=== PATIENT | female | born 1990 | race Caucasian/White ===

== ENCOUNTER → 2017-03-31 | Outpatient (CLI) | payer OTHER ==
[~2017-03-31] MED LIST: ACHYD1T PO; DCS100C PO; DOCU100C37 PO; IBP800T PO; IBUP-1780 PO; LVT.15T PO; METF500T4 PO; NITR-65 PO; PREN1TAB14 PO
--- NOTE | 2017-03-31 17:37 | Diagnostic Imaging Report ---
CLINICAL INDICATION: Patient with abdominal pain. Patient with retained products from tampon. Doctor removed tampon. EXAM: Transabdominal and transvaginal pelvic ultrasound. COMPARISON: CT scan of the abdomen and pelvis performed with contrast dated 07/25/2016. FINDINGS: IUD appears appropriately placed within the endometrial cavity. The uterus otherwise has normal configuration and echogenicity with no significant abnormality. The uterus measures 8.5 cm x 5.7 cm x 4.4 cm. The endometrial stripe is 6 mm. There is a 2.3 cm x 2.5 cm x 3.2 cm exophytic-appearing cyst involving the inferior portion of the left ovary. A paraovarian cyst may also be considered. This cystic structure has a simple appearance with no septations, nodularity, or Doppler flow. The right and left ovaries show normal-appearing spectral Doppler waveform. There is minimal free fluid seen. IMPRESSION: 1: There is a 3.2 cm cyst within the right adnexal region which may be within the ovary or paraovarian. The patient is noted to have right adnexal cystic structures on the comparison CT scan as well with the largest measuring 3.0 cm on the right. It is unknown if this represents the same cyst. Followup pelvic ultrasound in 6 weeks is suggested to evaluate for stability. 2: Otherwise, remainder of the pelvic exam is unremarkable. 3: IUD is in place. Dictated by: Dictated on workstation # [id number]
== END ==
LOC: RAD 11:44
PROVIDERS: ATTEND Nurse Practitioner Family
DX: R10.2 Pelvic and perineal pain (principal); N83.201 Unspecified ovarian cyst, right side; Z97.5 Presence of (intrauterine) contraceptive device
CPT/HCPCS: 76830; 76856

== ENCOUNTER → 2017-06-05 | Outpatient (CLI) | payer OTHER ==
--- NOTE | 2017-06-05 12:02 | Diagnostic Imaging Report ---
EXAMINATION: Transabdominal and transvaginal pelvic ultrasound. INDICATION: Spotting. FINDINGS: The uterus is 8.3 x 5.7 x 4.8 cm. The endometrial stripe is 0.7 cm in thickness. There is an IUD in place which appears to be in good position. No focal myometrial lesion is identified. The right ovary is 2.2 x 3.1 x 2.2 cm. A 3.2 cm cyst in the right ovary is seen with a simple appearance, similar to the 03/31/2017 exam. The left ovary is 2.9 x 2.6 x 1.8 cm in size. Arterial and venous waveforms are seen in both ovaries. A minimal amount of free fluid is seen in the pelvis. IMPRESSION: Persistent simple appearing 3.2 cm cyst in the right ovary. Dictated by: Dictated on workstation # [id number]
== END ==
LOC: RAD 10:59
PROVIDERS: ATTEND Nurse Practitioner Family
DX: N83.201 Unspecified ovarian cyst, right side (principal)
CPT/HCPCS: 76830; 76856

== ENCOUNTER 2017-10-27 05:32 | Outpatient (CLI) | payer BC ==
[~2017-10-27] VITALS: Ht 170.2 cm; Wt 121.6 kg
[2017-10-27] MEDS ORDERED: DULO20CA18 PO (13:42)
[2017-10-27] MEDS ORDERED: LEVO200T6 PO (13:42)
[2017-10-27] MEDS ORDERED: METF500T4 PO (13:42)
[2017-10-27] MEDS ORDERED: NORG1TAB14 PO (13:51)
[2017-10-27] MEDS ORDERED: ESZO2TAB4 PO (13:51)
== END 2017-10-27 13:52 ==
LOC: PREOP 05:32
PROVIDERS: ATTEND Obstetrics & Gynecology
DX: Z01.818 Encounter for other preprocedural examination (principal); N92.0 Excessive and frequent menstruation with regular cycle; D06.9 Carcinoma in situ of cervix, unspecified; D64.9 Anemia, unspecified

== ENCOUNTER 2019-03-04 12:03 | Emergency (ER) | payer SELFPAY ==
[~2019-03-04] VITALS: Ht 167.6 cm; Wt 122.5 kg
[~2019-03-04 12:03] MED LIST changes: +DULO20CA18 PO; +ESZO2TAB4 PO; +LEVO200T6 PO; +METF-397 PO; -METF500T4 PO; +NORG1TAB14 PO; +OXYC-465 PO
[2019-03-04 12:26] LABS: BASOPHILS # (AUTO) 0.1 10^3/uL (0.0-0.1); BASOPHILS % (AUTO) 1 % (0-10); EOSINOPHILS # (AUTO) 0.3 10^3/uL (0.0-0.3); EOSINOPHILS % (AUTO) 3 % (0-10); HEMATOCRIT 43 % (35-52); LYMPHOCYTES % (AUTO) 32 % (12-44); MEAN CORPUSCULAR HEMOGLOBIN 31 PG (25-34); MEAN CORPUSCULAR HGB CONC 35 G/DL (32-36); MEAN CORPUSCULAR VOLUME 88 FL (80-99); MEAN PLATELET VOLUME 10.6 FL (7.4-10.4); MONOCYTES # (AUTO) 0.6 X 10^3 (0.0-1.0); MONOCYTES % (AUTO) 7 % (0-12); NEUTROPHILS # (AUTO) 5.6 X 10^3 (1.8-7.8); NEUTROPHILS % (AUTO) 59 % (42-75); PLATELET COUNT 248 10^3/uL (130-400); RED CELL DISTRIBUTION WIDTH 12.3 % (10.0-14.5); WHITE BLOOD COUNT 9.5 10^3/uL (4.3-11.0)
[2019-03-04 12:27] LABS: BILIRUBIN,URINE NEGATIVE (NEGATIVE); CLARITY,URINE CLEAR; COLOR,URINE YELLOW; GLUCOSE, URINE (UA) NEGATIVE (NEGATIVE); KETONES,URINE NEGATIVE (NEGATIVE); LEUKOCYTE ESTERASE ,URINE 2+ (NEGATIVE); NITRITE,URINE NEGATIVE (NEGATIVE); PH,URINE 5 (5-9); PROTEIN,URINE NEGATIVE (NEGATIVE); UROBILINOGEN,URINE NORMAL (NORMAL)
--- NOTE | 2019-03-04 12:27 | ED General ---
General Stated Complaint: LIGHTHEADED,DIZZY Source of Information: Patient Exam Limitations: No Limitations History of Present Illness Date Seen by Provider: Mar 04, 2019 Time Seen by Provider: 12:23 Initial Comments To ER by private vehicle with reports of dizziness lightheadedness general malaise. Symptoms of been present for one week, was seen at walk-in clinic over the weekend, diagnosed with tonsillitis, had negative strep test so is not on any antibiotics. Also had a hemoglobin A1c done which was 6.8. She was formerly on metformin but hasn't been recently. 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 States she tried to go to work today but had to leave because she was dizzy she vomited. No palpitations or shortness of breath. Timing/Duration: 1-2 Days Severity: Moderate Associated Systoms: Nausea/Vomiting Allergies and Home Medications Allergies Coded Allergies: No Known Drug Allergies (Unverified , 12/29/12) Home Medications Docusate Sodium 100 Mg Capsule, 100 MG PO BID Prescribed by: RITA VIZCARRA on 11/04/17 1026 Duloxetine HCl 20 Mg Capsule.dr, 40 MG PO DAILY, (Reported) TAKE 2 (20MG) TABS Eszopiclone 2 Mg Tablet, 2 MG PO HS, (Reported) Ibuprofen 800 Mg Tablet, 800 MG PO Q6HR Prescribed by: RITA VIZCARRA on 11/04/17 1026 Levothyroxine Sodium 200 Mcg Tablet, 200 MCG PO DAILY, (Reported) Metformin HCl 500 Mg Tablet, 500 MG PO BID, (Reported) Norgestimate-Ethinyl Estradiol 1 Each Tablet, 1 TAB PO DAILY, (Reported) Oxycodone HCl/Acetaminophen 1 Each Tablet, 1-2 TAB PO Q4HR PRN for PAIN-MODERATE TO SEVERE Prescribed by: RITA VIZCARRA on 11/04/17 1026 Patient Home Medication List Home Medication List Reviewed: Yes Review of Systems Review of Systems Constitutional: see HPI; No chills, No fever; malaise EENTM: see HPI Respiratory: no symptoms reported Cardiovascular: no symptoms reported Gastrointestinal: nausea; No vomiting Genitourinary: no symptoms reported; No dysuria Musculoskeletal: no symptoms reported Skin: no symptoms reported Psychiatric/Neurological: See HPI, Other (dizziness, feels like the room is spinning) Past Mzteqdl-Mwknyc-Fzmqbi Hx Patient Social History Recent Foreign Travel: No Contact w/Someone Who Travel: No Recent Hopitalizations: No Immunizations Up To Date Tetanus Booster (TDap): Unknown PED Vaccines UTD: No Date of Influenza Vaccine: Jun 17, 2017 Seasonal Allergies Seasonal Allergies: No Past Medical History Reproductive Disorders: No Female Reproductive Disorders: Denies Sexually Transmitted Disease: No HIV/AIDS: No Fractures Hypothyroidsim Loss of Vision: Denies Hearing Impairment: Denies Adverse Reaction/Blood Tranf: No Family Medical History Alcoholism PATERNAL UNCLE Alzheimer's disease PATERNAL GRANDMOTHER Arthritis MATERNAL GRANDFATHER PATERNAL GRANDFATHER Completed stroke MATERNAL GRANDFATHER PATERNAL UNCLE Diabetes mellitus PATERNAL GRANDMOTHER PATERNAL GRANDFATHER Hypertension PATERNAL GRANDFATHER Neoplasm PATERNAL GRANDMOTHER (BREAST CANCER) Respiratory disorder MATERNAL GRNADMOTHER (COPD) Physical Exam Vital Signs Vital Signs - First Documented 03/04/19 12:14 Temp 96.9 Pulse 64 Resp 14 B/P (MAP) 143/103 (116) Pulse Ox 98 O2 Delivery Room Air Capillary Refill : Height, Weight, BMI Height: 5'7.00" Weight: 268lbs. 0.0oz. 121.624971oc; 42.0 BMI Method:Stated General Appearance: No Apparent Distress, WD/WN, Obese, Other (very pleasant alert and oriented ambulatory without abnormal gait pattern room 10) Eyes: Bilateral Eye Normal Inspection, Bilateral Eye PERRL, Bilateral Eye EOMI HEENT: PERRL/EOMI, TMs Normal, Tonsillar Enlargement (without erythema or exudate) Neck: Full Range of Motion, Normal Inspection Respiratory: No Accessory Muscle Use, No Respiratory Distress Cardiovascular: Regular Rate, Rhythm, Normal Peripheral Pulses Gastrointestinal: Normal Bowel Sounds, Non Tender, Soft Extremity: Normal Capillary Refill, Normal Inspection Neurologic/Psychiatric: Alert, Oriented x3 Skin: Normal Color, Warm/Dry Progress/Results/Core Measures Suspected Sepsis SIRS Temperature: Pulse: Respiratory Rate: Laboratory Tests 03/04/19 12:19: White Blood Count 9.5 Blood Pressure / Mean: Laboratory Tests 03/04/19 12:19: Creatinine 0.95, Platelet Count 248, Total Bilirubin 0.5 Results/Orders Lab Results Laboratory Tests Test 03/04/19 12:19 Range/Units White Blood Count 9.5 4.3-11.0 10^3/uL Red Blood Count 4.90 4.35-5.85 10^6/uL Hemoglobin 15.0 11.5-16.0 G/DL Hematocrit 43 35-52 % Mean Corpuscular Volume 88 80-99 FL Mean Corpuscular Hemoglobin 31 25-34 PG Mean Corpuscular Hemoglobin Concent 35 32-36 G/DL Red Cell Distribution Width 12.3 10.0-14.5 % Platelet Count 248 130-400 10^3/uL Mean Platelet Volume 10.6 H 7.4-10.4 FL Neutrophils (%) (Auto) 59 42-75 % Lymphocytes (%) (Auto) 32 12-44 % Monocytes (%) (Auto) 7 0-12 % Eosinophils (%) (Auto) 3 0-10 % Basophils (%) (Auto) 1 0-10 % Neutrophils # (Auto) 5.6 1.8-7.8 X 10^3 Lymphocytes # (Auto) 3.0 1.0-4.0 X 10^3 Monocytes # (Auto) 0.6 0.0-1.0 X 10^3 Eosinophils # (Auto) 0.3 0.0-0.3 10^3/uL Basophils # (Auto) 0.1 0.0-0.1 10^3/uL Urine Color YELLOW Urine Clarity CLEAR Urine pH 5 5-9 Urine Specific [place] 1.020 1.016-1.022 Urine Protein NEGATIVE NEGATIVE Urine Glucose (UA) NEGATIVE NEGATIVE Urine Ketones NEGATIVE NEGATIVE Urine Nitrite NEGATIVE NEGATIVE Urine Bilirubin NEGATIVE NEGATIVE Urine Urobilinogen NORMAL NORMAL MG/DL Urine Leukocyte Esterase 2+ H NEGATIVE Urine RBC (Auto) NEGATIVE NEGATIVE Urine RBC NONE /HPF Urine WBC 2-5 /HPF Urine Squamous Epithelial Cells 2-5 /HPF Urine Crystals NONE /LPF Urine Bacteria NEGATIVE /HPF Urine Casts NONE /LPF Urine Mucus NEGATIVE /LPF Urine Culture Indicated NO Sodium Level 138 135-145 MMOL/L Potassium Level 3.9 3.6-5.0 MMOL/L Chloride Level 104 98-107 MMOL/L Carbon Dioxide Level 24 21-32 MMOL/L Anion Gap 10 5-14 MMOL/L Blood Urea Nitrogen 9 7-18 MG/DL Creatinine 0.95 0.60-1.30 MG/DL Estimat Glomerular Filtration Rate > 60 BUN/Creatinine Ratio 9 Glucose Level 128 H 70-105 MG/DL Calcium Level 9.4 8.5-10.1 MG/DL Corrected Calcium 9.0 8.5-10.1 MG/DL Total Bilirubin 0.5 0.1-1.0 MG/DL Aspartate Amino Transf (AST/SGOT) 17 5-34 U/L Alanine Aminotransferase (ALT/SGPT) 26 0-55 U/L Alkaline Phosphatase 81 40-136 U/L Total Protein 7.8 6.4-8.2 GM/DL Albumin 4.5 3.2-4.5 GM/DL My Orders Orders - EPIFANIO LARA APRN Thyroid Stimulating Hormone (03/04/19 12:21) Free T4 (Free Thyroxine) (03/04/19 12:21) Cbc With Automated Diff (03/04/19 12:21) Comprehensive Metabolic Panel (03/04/19 12:21) Ua Culture If Indicated (03/04/19 12:21) Ed Iv/Invasive Line Start (03/04/19 12:21) Meclizine Tablet (Antivert Tablet) (03/04/19 12:30) Ondansetron Injection (Zofran Injectio (03/04/19 12:30) Medications Given in ED Current Medications Medications Dose Ordered Sig/Ladarius Route Start Time Stop Time Status Last Admin Dose Admin Meclizine HCl 25 mg ONCE ONCE PO 03/04/19 12:30 03/04/19 12:31 DC 03/04/19 12:32 25 MG Ondansetron HCl 8 mg ONCE ONCE IVP 03/04/19 12:30 03/04/19 12:31 DC 03/04/19 12:32 8 MG Vital Signs/I&O 03/04/19 12:14 Temp 96.9 Pulse 64 Resp 14 B/P (MAP) 143/103 (116) Pulse Ox 98 O2 Delivery Room Air Capillary Refill : Departure Impression Primary Impression: Dizziness Disposition: 01 HOME, SELF-CARE Condition: Stable Departure-Patient Inst. Decision time for Depature: 13:00 Referrals: [facility] (PCP/Family) Primary Care Physician Patient Instructions: Vertigo (a Type of Dizziness) (DC) Add. Discharge Instructions: 1. Return here. 2. Follow-up your doctor this week for recheck Scripts Ondansetron (Ondansetron Odt) 8 Mg Tab.rapdis 8 MG PO Q6H PRN for NAUSEA/VOMITING, #10 TAB Prov: EPIFANIO LARA APRN 03/04/19 Meclizine HCl (Meclizine HCl) 25 Mg Tablet 25 MG PO TID PRN for DIZZINESS, #10 TAB Prov: EPIFANIO LARA APRN 03/04/19 Work/School Note: Work Release Form Date Seen in the Emergency Department: Mar 04, 2019 Return to Work: Mar 06, 2019 EPIFANIO LARA APRN Mar 04, 2019 12:27
[2019-03-04] MEDS ORDERED: ONDANSETRON 4 MG/2 ML (SDV) Z0FRAN IVP ONE (12:30)
[2019-03-04] MEDS ORDERED: MECLIZINE 25 MG (ANTIVERT) TAB PO ONE (12:30)
[2019-03-04 12:41] LABS: BACTERIA,URINE NEGATIVE /HPF
[2019-03-04 12:50] LABS: ALANINE AMINOTRANSFERASE 26 U/L (0-55); ALBUMIN 4.5 GM/DL (3.2-4.5); ALKALINE PHOSPHATASE 81 U/L (40-136); BILIRUBIN,TOTAL 0.5 MG/DL (0.1-1.0); BUN/CREATININE RATIO 9; CALCIUM 9.4 MG/DL (8.5-10.1); CARBON DIOXIDE 24 MMOL/L (21-32); CHLORIDE 104 MMOL/L (98-107); CREATININE SERUM 0.95 MG/DL (0.60-1.30); GFR ESTIMATED > 60; GLUCOSE 128 MG/DL (70-105); POTASSIUM 3.9 MMOL/L (3.6-5.0); SODIUM 138 MMOL/L (135-145); TOTAL PROTEIN 7.8 GM/DL (6.4-8.2)
[2019-03-04] MEDS ORDERED: ONDA8TAB13 PO (13:03)
[2019-03-04] MEDS ORDERED: MECL-106 PO (13:03)
[2019-03-04 13:13] LABS: FREE T4 (FREE THYROXINE) 0.96 NG/DL (0.70-1.48)
[2019-03-04] MEDS ORDERED: METF-397 PO (13:19)
[2019-03-04 13:39] VITALS: BP 115/80
== END 2019-03-04 13:39 | disposition home or self-care (01) ==
LOC: EDUNIT# 12:03 → ER 12:04
DX: R42 Dizziness and giddiness (principal); E06.3 Autoimmune thyroiditis; E03.9 Hypothyroidism, unspecified; Z85.41 Personal history of malignant neoplasm of cervix uteri; Z90.710 Acquired absence of both cervix and uterus; Z79.84 Long term (current) use of oral hypoglycemic drugs; Z82.49 Family history of ischemic heart disease and other diseases of the circulatory system; Z80.3 Family history of malignant neoplasm of breast
CPT/HCPCS: 36415; 80053; 81000; 84439; 84443; 85025; 96374

== ENCOUNTER 2019-03-06 11:19 | Emergency (ER) | payer SELFPAY ==
[~2019-03-06] VITALS: Ht 167.6 cm; Wt 122.5 kg
[~2019-03-06 11:19] MED LIST changes: +MECL-106 PO; +ONDA8TAB13 PO
[2019-03-06] MEDS ORDERED: LACTATED RINGERS 1,000 ML IV ONE (13:43)
[2019-03-06 13:58] VITALS: BP_SYST 102; BP_SYST 116; BP_SYST 119; BP_DIAS 48; BP_DIAS 74; BP_DIAS 76
[2019-03-06 14:00] LABS: BASOPHILS # (AUTO) 0.1 10^3/uL (0.0-0.1); BASOPHILS % (AUTO) 1 % (0-10); EOSINOPHILS # (AUTO) 0.2 10^3/uL (0.0-0.3); EOSINOPHILS % (AUTO) 2 % (0-10); HEMATOCRIT 43 % (35-52); HEMOGLOBIN 15.1 G/DL (11.5-16.0); LYMPHOCYTES # (AUTO) 2.8 X 10^3 (1.0-4.0); LYMPHOCYTES % (AUTO) 30 % (12-44); MEAN CORPUSCULAR HEMOGLOBIN 31 PG (25-34); MEAN CORPUSCULAR HGB CONC 35 G/DL (32-36); MEAN CORPUSCULAR VOLUME 88 FL (80-99); MONOCYTES # (AUTO) 0.6 X 10^3 (0.0-1.0); MONOCYTES % (AUTO) 6 % (0-12); NEUTROPHILS # (AUTO) 5.7 X 10^3 (1.8-7.8); NEUTROPHILS % (AUTO) 61 % (42-75); PLATELET COUNT 254 10^3/uL (130-400); RED CELL DISTRIBUTION WIDTH 12.4 % (10.0-14.5); WHITE BLOOD COUNT 9.4 10^3/uL (4.3-11.0)
[2019-03-06 14:13] LABS: BILIRUBIN,URINE NEGATIVE (NEGATIVE); CLARITY,URINE CLEAR; COLOR,URINE YELLOW; GLUCOSE, URINE (UA) NEGATIVE (NEGATIVE); KETONES,URINE NEGATIVE (NEGATIVE); LEUKOCYTE ESTERASE ,URINE 1+ (NEGATIVE); NITRITE,URINE NEGATIVE (NEGATIVE); PH,URINE 6 (5-9); PROTEIN,URINE NEGATIVE (NEGATIVE); UROBILINOGEN,URINE NORMAL (NORMAL)
[2019-03-06 14:14] LABS: ALANINE AMINOTRANSFERASE 25 U/L (0-55); ALBUMIN 4.3 GM/DL (3.2-4.5); ALKALINE PHOSPHATASE 84 U/L (40-136); BILIRUBIN,TOTAL 0.4 MG/DL (0.1-1.0); BUN/CREATININE RATIO 10; CALCIUM 9.6 MG/DL (8.5-10.1); CARBON DIOXIDE 25 MMOL/L (21-32); CHLORIDE 103 MMOL/L (98-107); CREATININE SERUM 0.84 MG/DL (0.60-1.30); GFR ESTIMATED > 60; GLUCOSE 115 MG/DL (70-105); SODIUM 140 MMOL/L (135-145); TOTAL PROTEIN 7.7 GM/DL (6.4-8.2)
[2019-03-06 14:27] LABS: BACTERIA,URINE FEW /HPF; WBC,URINE 0-2 /HPF
[2019-03-06 14:38] LABS: ERYTHROCYTE SEDIMENTATION RATE 5 MM/HR (0-20)
--- NOTE | 2019-03-06 14:43 | ED General ---
General Chief Complaint: Dizziness/Syncope Stated Complaint: DIZZY/NAUSEA Nursing Triage Note: Pt c/o body numbness and headache. Pt reports numbing pain and states she "can't function". Pt was seen in this ED earlier this week for similar symptoms. Pt reports problems ambulating and s/o w/ pt reports slurred speech yesterday. Nursing Sepsis Screen: No Definite Risk Source of Information: Patient Exam Limitations: No Limitations (STELLA GOMEZ MEDICAL STUDENT) History of Present Illness Date Seen by Provider: Mar 06, 2019 Time Seen by Provider: 14:14 Initial Comments Patient returns to ED today for continued dizziness x1week and pain in the back of her head and neck. Yesterday, her body was tingly, progressing to full body weakness today. The meclizine and odansetron prescribed at last visit have not helped at all. The only thing that helps her dizziness is keeping her eyes closed. She is unable to work, noting that staring at a computer and any movements worsen her dizziness. Patient admits to her vision blurring over the last week, but denies tunnel vision or tinnitus. Timing/Duration: 1 Week, Getting Worse Severity: Moderate Modifying Factors: improves with Rest (keeping eyes closed) Associated Systoms: No Chest Pain; Fever/Chills, Headaches, Nausea/Vomiting (nausea) (STELLA GOMEZ MEDICAL STUDENT) Allergies and Home Medications Allergies Coded Allergies: No Known Drug Allergies (Unverified , 12/29/12) Home Medications Acetazolamide 250 Mg Tablet, 500 MG PO BID Prescribed by: FERN DIAZ on 03/06/19 1715 Docusate Sodium 100 Mg Capsule, 100 MG PO BID Prescribed by: RITA VIZCARRA on 11/04/17 1026 Duloxetine HCl 20 Mg Capsule.dr, 40 MG PO DAILY, (Reported) TAKE 2 (20MG) TABS Eszopiclone 2 Mg Tablet, 2 MG PO HS, (Reported) Ibuprofen 800 Mg Tablet, 800 MG PO Q6HR Prescribed by: RITA VIZCARRA on 11/04/17 1026 Levothyroxine Sodium 200 Mcg Tablet, 200 MCG PO DAILY, (Reported) Meclizine HCl 25 Mg Tablet, 25 MG PO TID PRN for DIZZINESS Prescribed by: EPIFANIO LARA on 03/04/19 1303 Metformin HCl 500 Mg Tablet, 500 MG PO BID, (Reported) Metformin HCl 500 Mg Tablet, 500 MG PO BID Prescribed by: EPIFANIO LARA on 03/04/19 1319 Norgestimate-Ethinyl Estradiol 1 Each Tablet, 1 TAB PO DAILY, (Reported) Ondansetron 8 Mg Tab.rapdis, 8 MG PO Q6H PRN for NAUSEA/VOMITING Prescribed by: EPIFANIO LARA on 03/04/19 1303 Oxycodone HCl/Acetaminophen 1 Each Tablet, 1-2 TAB PO Q4HR PRN for PAIN-MODERATE TO SEVERE Prescribed by: RITA VIZCARRA on 11/04/17 1026 Patient Home Medication List Home Medication List Reviewed: Yes (STELLA GOMEZ MEDICAL STUDENT) Review of Systems Review of Systems Constitutional: chills; No diaphoresis; dizziness EENTM: blurred vision; No eye pain Respiratory: no symptoms reported Cardiovascular: no symptoms reported Gastrointestinal: diarrhea, nausea; No vomiting Genitourinary: No dysuria, No frequency Musculoskeletal: neck pain Skin: no symptoms reported Psychiatric/Neurological: Headache, Numbness, Tingling Hematologic/Lymphatic: No Symptoms Reported Immunological/Allergic: no symptoms reported (STELLA GOMEZ MEDICAL STUDENT) Past Sskrnsq-Mivpuv-Vhxwfg Hx Patient Social History Alcohol Use: Denies Use Recreational Drug Use: No Smoking Status: Never a Smoker Recent Foreign Travel: No Contact w/Someone Who Travel: No Recent Infectious Disease Expo: No Recent Hopitalizations: No (STELLA GOMEZ MEDICAL STUDENT) Immunizations Up To Date Tetanus Booster (TDap): Unknown PED Vaccines UTD: No Date of Influenza Vaccine: Jun 17, 2017 (STELLA GOMEZ MEDICAL STUDENT) Seasonal Allergies Seasonal Allergies: No (STELLA GOMEZ MEDICAL STUDENT) Past Medical History Surgeries: Yes Hysterectomy (for cervical cancer) Respiratory: No Cardiac: No Neurological: No Reproductive Disorders: No Female Reproductive Disorders: Denies [employer] ACQU[employer]ION History: Hysterectomy Sexually Transmitted Disease: No HIV/AIDS: No Gastrointestinal: No Musculoskeletal: Yes (LEFT ARM 16 YRS OLD) Fractures Endocrine: Yes (PRE-DIABETIC) Hypothyroidsim Loss of Vision: Denies Hearing Impairment: Denies Cancer: Yes Cervical Did You Recieve Any Treatments: Yes What Type of Treatment Did You: Surgical Intervention Psychosocial: No Integumentary: No Blood Disorders: No Adverse Reaction/Blood Tranf: No (STELLA GOMEZ MEDICAL STUDENT) Family Medical History Alcoholism PATERNAL UNCLE Alzheimer's disease PATERNAL GRANDMOTHER Arthritis MATERNAL GRANDFATHER PATERNAL GRANDFATHER Completed stroke MATERNAL GRANDFATHER PATERNAL UNCLE Diabetes mellitus PATERNAL GRANDMOTHER PATERNAL GRANDFATHER Hypertension PATERNAL GRANDFATHER Neoplasm PATERNAL GRANDMOTHER (BREAST CANCER) Respiratory disorder MATERNAL GRNADMOTHER (COPD) Physical Exam Vital Signs Vital Signs - First Documented 03/06/19 12:35 Temp 97.7 Pulse 79 Resp 18 B/P (MAP) 125/84 (98) Pulse Ox 100 O2 Delivery Room Air (FERN DIAZ MD) Vital Signs Capillary Refill : Less Than 3 Seconds (STELLA GOMEZ MEDICAL STUDENT) Height, Weight, BMI Height: 5'6.00" Weight: 270lbs. 0.0oz. 122.309670ty; 42.0 BMI Method:Stated General Appearance: No Apparent Distress, Obese Eyes: Bilateral Eye PERRL, Bilateral Eye EOMI, Bilateral Eye Other (papilledema) HEENT: PERRL/EOMI; No Photophobia Neck: Full Range of Motion, Supple Respiratory: Lungs Clear, Normal Breath Sounds Cardiovascular: Regular Rate, Rhythm, No Murmur, Tachycardia Gastrointestinal: Non Tender, Soft Extremity: Normal Capillary Refill, No Calf Tenderness, No Pedal Edema; No Swelling Neurologic/Psychiatric: Alert, Oriented x3; No Sensory Deficit Skin: Normal Color, Warm/Dry (STELLA GOMEZ MEDICAL STUDENT) Focused Exam Peripheral Pulses: 2+ Radial Pulses (R), 2+ Radial Pulses (L) (STELLA GOMEZ MEDICAL STUDENT) Progress/Results/Core Measures Suspected Sepsis Recent Fever Within 48 Hours: No Infection Criteria Present: None New/Unexplained Altered Menta: No Sepsis Screen: No Definite Risk SIRS Temperature:97.7 Pulse: 100 Respiratory Rate: 18 Laboratory Tests 03/06/19 12:50: White Blood Count 9.4 Blood Pressure 116 /76 Mean: 89 Laboratory Tests 03/06/19 12:50: Creatinine 0.84, Platelet Count 254, Total Bilirubin 0.4 (STELLA GOMEZ MEDICAL STUDENT) Results/Orders Lab Results Laboratory Tests Test 03/06/19 12:50 03/06/19 14:00 03/06/19 16:20 Range/Units White Blood Count 9.4 4.3-11.0 10^3/uL Red Blood Count 4.93 4.35-5.85 10^6/uL Hemoglobin 15.1 11.5-16.0 G/DL Hematocrit 43 35-52 % Mean Corpuscular Volume 88 80-99 FL Mean Corpuscular Hemoglobin 31 25-34 PG Mean Corpuscular Hemoglobin Concent 35 32-36 G/DL Red Cell Distribution Width 12.4 10.0-14.5 % Platelet Count 254 130-400 10^3/uL Mean Platelet Volume 11.0 H 7.4-10.4 FL Neutrophils (%) (Auto) 61 42-75 % Lymphocytes (%) (Auto) 30 12-44 % Monocytes (%) (Auto) 6 0-12 % Eosinophils (%) (Auto) 2 0-10 % Basophils (%) (Auto) 1 0-10 % Neutrophils # (Auto) 5.7 1.8-7.8 X 10^3 Lymphocytes # (Auto) 2.8 1.0-4.0 X 10^3 Monocytes # (Auto) 0.6 0.0-1.0 X 10^3 Eosinophils # (Auto) 0.2 0.0-0.3 10^3/uL Basophils # (Auto) 0.1 0.0-0.1 10^3/uL Erythrocyte Sedimentation Rate 5 0-20 MM/HR D-Dimer 0.55 H 0.00-0.49 UG/ML Sodium Level 140 135-145 MMOL/L Potassium Level 4.0 3.6-5.0 MMOL/L Chloride Level 103 98-107 MMOL/L Carbon Dioxide Level 25 21-32 MMOL/L Anion Gap 12 5-14 MMOL/L Blood Urea Nitrogen 8 7-18 MG/DL Creatinine 0.84 0.60-1.30 MG/DL Estimat Glomerular Filtration Rate > 60 BUN/Creatinine Ratio 10 Glucose Level 115 H 70-105 MG/DL Calcium Level 9.6 8.5-10.1 MG/DL Corrected Calcium 9.4 8.5-10.1 MG/DL Total Bilirubin 0.4 0.1-1.0 MG/DL Aspartate Amino Transf (AST/SGOT) 16 5-34 U/L Alanine Aminotransferase (ALT/SGPT) 25 0-55 U/L Alkaline Phosphatase 84 40-136 U/L C-Reactive Protein High Sensitivity 0.83 H 0.00-0.50 MG/DL Total Protein 7.7 6.4-8.2 GM/DL Albumin 4.3 3.2-4.5 GM/DL Urine Color YELLOW Urine Clarity CLEAR Urine pH 6 5-9 Urine Specific [place] 1.015 L 1.016-1.022 Urine Protein NEGATIVE NEGATIVE Urine Glucose (UA) NEGATIVE NEGATIVE Urine Ketones NEGATIVE NEGATIVE Urine Nitrite NEGATIVE NEGATIVE Urine Bilirubin NEGATIVE NEGATIVE Urine Urobilinogen NORMAL NORMAL MG/DL Urine Leukocyte Esterase 1+ H NEGATIVE Urine RBC (Auto) NEGATIVE NEGATIVE Urine RBC NONE /HPF Urine WBC 0-2 /HPF Urine Squamous Epithelial Cells 2-5 /HPF Urine Crystals NONE /LPF Urine Bacteria FEW H /HPF Urine Casts NONE /LPF Urine Mucus NEGATIVE /LPF Urine Culture Indicated YES CSF Glucose 74 50-80 MG/DL CSF Total Protein 30 15-40 MG/DL (FERN DIAZ MD) My Orders Orders - FERN DIAZ MD Orthostatic Vital Signs (Adult (03/06/19 13:43) Cbc With Automated Diff (03/06/19 13:43) Comprehensive Metabolic Panel (03/06/19 13:43) Hs C Reactive Protein (03/06/19 13:43) Ua Culture If Indicated (03/06/19 13:43) Erythrocyte Sedimentation Rate (03/06/19 13:43) Ed Iv/Invasive Line Start (03/06/19 13:43) Lactated Ringers (Lr 1000 Ml Iv Solution (03/06/19 13:43) Urine Culture (03/06/19 14:00) Fibrin Degradation Products (03/06/19 14:29) Ct Head Wo (03/06/19 14:55) Acetazolamide Tablet (Diamox Tablet) (03/06/19 16:45) Csf Cell Count (03/06/19 16:45) Csf Glucose (03/06/19 16:45) Csf Total Protein (03/06/19 16:45) Csf Culture (03/06/19 16:45) (FERN DIAZ MD) Medications Given in ED Current Medications Medications Dose Ordered Sig/Ladarius Route Start Time Stop Time Status Last Admin Dose Admin Lactated Ringer's 1,000 ml @ 0 mls/hr Q0M ONCE IV 03/06/19 13:43 03/06/19 13:46 DC 03/06/19 14:00 0 MLS/HR (FERN DIAZ MD) Vital Signs/I&O 03/06/19 03/06/19 12:35 13:58 Temp 97.7 Pulse 79 71 73 100 Resp 18 B/P (MAP) 125/84 (98) 102/48 (66) 119/74 (89) 116/76 (89) Pulse Ox 100 O2 Delivery Room Air (FERN DIAZ MD) Vital Signs/I&O Capillary Refill : Less Than 3 Seconds (STELLA GOMEZ MEDICAL STUDENT) Blood Pressure Mean: 89 Progress Note : Progress Note I have seen and evaluated the patient and agree with above except as indicated. I have directed the plan of care. Patient is here with vague complaints of diz ziness over the last week. She had workup done 2 days ago here that did not show any significant findings. Patient states that she is dizzy with any movement and feels tingly on her body as well as warm. She states that she only verbalizes that something is wrong when she really has something wrong. She is sure that there is something going on. The medications that were prescribed that apparently helped on the previous visit did not help at home. She states that she only told him that it helped because she did not think they would do anything more. She has recently started metformin which seems to be causing a little diarrhea. She states that she is eating and drinking okay. She is not able to go to work. Physical exam shows pupils equal round and reactive. Lungs are clear to auscultation bilaterally. Patient is mildly tachycardic with movement but otherwise heart sounds normal. I do question mild papilledema. We will check labs and urine and get CT of the head. Consideration for pseudotumor cerebri. Patient will need lumbar puncture to evaluate. This was discussed with the patient who agrees. Anesthesia will be notified as this will be a difficult tap due to body habitus. Monitor patient. 1630: Anesthesia did perform lumbar puncture and does show opening pressure of 37 which does indicate idiopathic interventricular hypertension (pseudotumor cerebri). We will initiate acetazolamide. I did discuss the case with Dr. Arciniega, on-call for [facility]. She has set up appointment with Dr. Isidro on 03/11/19 at 0940 for recheck appointment and adjustment of acetazolamide as needed. Discharged home with return precautions. Patient and family verbalize understanding of instructions and agreement with plan. (FERN DIAZ MD) Diagnostic Imaging Diagonstic Imaging: CT Plain Films/CT/US/NM/MRI: head Comments [facility], [place] NAME: MELCHOR FITCH [facility] REC#: [id number] PT STATUS: REG ER : 1990 PHYSICIAN: FERN DIAZ MD ADMIT DATE: 03/06/19/ER Draft Date of Exam:03/06/19 CT HEAD WO PROCEDURE: CT head without contrast. TECHNIQUE: Multiple contiguous axial images were obtained through the brain without the use of intravenous contrast. Auto Exposure Controls were utilized during the CT exam to meet ALARA standards for radiation dose reduction. INDICATION: Nausea, dizziness, and lightheadedness. FINDINGS: There is no intracranial hemorrhage, hydrocephalus, edema, mass, or mass effect. The basilar cisterns are patent. There is no sulcal effacement. The orbits, sinuses, and calvarium are within normal limits. No evidence for elevated pressures. No mass or mass effect. No abnormal extra-axial fluid collection. The orbits, sinuses, and calvarium are within normal limits. IMPRESSION: Unremarkable CT head. Dictated on workstation # [id number] Dict: 03/06/19 1532 Trans: 03/06/19 1546 [id number] Interpreted by: CORA MCCALL Electronically signed by: (FERN DIAZ MD) Departure Impression Primary Impression: Idiopathic intracranial hypertension Disposition: 01 HOME, SELF-CARE Condition: Stable Departure-Patient Inst. Decision time for Depature: 17:12 (FERN DIAZ MD) Referrals: [facility] (PCP/Family) Primary Care Physician MARIBEL SIIDRO MD Patient Instructions: Idiopathic Intracranial Hypertension (Pseudotumor Cerebri) Add. Discharge Instructions: All discharge instructions reviewed with patient and/or family. Voiced understanding. Take medications as directed. Follow-up with Dr. Isidro on 03/11/19 at 0940 in the morning. Return for worse pain, fever, vomiting, weakness, breathing problems or other concerns as needed. You should follow-up with your eye doctor as well to reevaluate her eyes and so they can follow those to ensure that you're having improvement. Scripts Acetazolamide (Acetazolamide) 250 Mg Tablet 500 MG PO BID, #56 TAB Prov: FERN DIAZ MD 03/06/19 Copy Copies To 1: MARIBEL ISIDRO MD,[facility] MEDICAL STUDENT Mar 06, 2019 14:43 FERN DIAZ MD Mar 06, 2019 15:34
--- NOTE | 2019-03-06 15:46 | Diagnostic Imaging Report ---
PROCEDURE: CT head without contrast. TECHNIQUE: Multiple contiguous axial images were obtained through the brain without the use of intravenous contrast. Auto Exposure Controls were utilized during the CT exam to meet ALARA standards for radiation dose reduction. INDICATION: Nausea, dizziness, and lightheadedness. FINDINGS: There is no intracranial hemorrhage, hydrocephalus, edema, mass, or mass effect. The basilar cisterns are patent. There is no sulcal effacement. The orbits, sinuses, and calvarium are within normal limits. No evidence for elevated pressures. No mass or mass effect. No abnormal extra-axial fluid collection. The orbits, sinuses, and calvarium are within normal limits. IMPRESSION: Unremarkable CT head. Dictated by: Dictated on workstation # [id number]
[2019-03-06] MEDS ORDERED: acetaZOLAMIDE 250 MG (DIAMOX) TAB PO SCH (16:45)
--- NOTE | 2019-03-06 16:50 | Anesthesia-Procedure Note ---
Procedures/Interventions Procedure Start/Stop/Diagnosis Date of Procedure: Mar 06, 2019 Start Time: 15:45 Referring Physician: Bennie Preprocedural Diagnosis: H/A, Dizzyness Brief History Called to ER to perform lumbar puncture on pt with c/o headache and dizziness. Chart reviewed and CT report negative. ASA 2. Interviewed pt and consent obtained after lengthy discussion. Assisted by AUTO TOP MECHANICBETH Landaverde. Pt turned to her left side for placement. Betadine prep x3 with sterile drape applied and sterile technique maintained throughout procedure. 5cc 1% lidocaine to skin for local anesthesia injected at L4-5 interspace. #22g 5" needle advanced easily with CSF obtained after second pass. Opening pressure was 37 mmHG with pressure reading given to Dr. Avery. CSF flowed freely and 4 specimen containers partially filled sent to lab after labeled. Spinal need withdrew easily and b and aid applied to injection site. VSS. Pt tolerated procedure well. Left in care of RN with report. Stop Time: 16:30 Postprocedural Diagnosis: H/A, Dizzyness KELLY CHRISTIANSON CRNA Mar 06, 2019 16:50
[2019-03-06 17:10] LABS: CSF GLUCOSE 74 MG/DL (50-80); CSF TOTAL PROTEIN 30 MG/DL (15-40)
[2019-03-06] MEDS ORDERED: ACET250T3 PO (17:15)
[2019-03-06 17:29] LABS: APPEARANCE,CSF CLEAR; COLOR,CSF COLORLESS
[2019-03-06 17:30] LABS: CSF TUBE NUMBER 4; RED BLOOD CELL,CSF 8 CELLS (0-0); WHITE BLOOD CELL,CSF 2 CELLS (0-5)
[2019-03-06 17:35] VITALS: BP 113/80
== END 2019-03-06 17:35 | disposition home or self-care (01) ==
LOC: EDUNIT# 11:19 → ER 11:20
DX: G93.2 Benign intracranial hypertension (principal); E03.9 Hypothyroidism, unspecified; Z79.84 Long term (current) use of oral hypoglycemic drugs; Z90.710 Acquired absence of both cervix and uterus; Z85.41 Personal history of malignant neoplasm of cervix uteri; Z82.49 Family history of ischemic heart disease and other diseases of the circulatory system; Z80.3 Family history of malignant neoplasm of breast
CPT/HCPCS: 36415; 70450; 80053; 81000; 82945; 84157; 85025; 85379; 85652; 86141; 87070; 87077; 87088; 87186; 87205; 89051; 96360

== ENCOUNTER 2019-06-30 15:16 | Emergency (ER) | payer OTHER ==
[~2019-06-30] VITALS: Ht 167 cm; Wt 127.0 kg
[~2019-06-30 15:16] MED LIST changes: +ACET250T3 PO; -DULO20CA18 PO; +DULO20CA19 PO; +SULF1TAB35 PO
[2019-06-30 15:46] LABS: BILIRUBIN,URINE NEGATIVE (NEGATIVE); CLARITY,URINE CLEAR; COLOR,URINE YELLOW; GLUCOSE, URINE (UA) NEGATIVE (NEGATIVE); KETONES,URINE NEGATIVE (NEGATIVE); LEUKOCYTE ESTERASE ,URINE NEGATIVE (NEGATIVE); NITRITE,URINE NEGATIVE (NEGATIVE); PH,URINE 6.5 (5-9); PROTEIN,URINE NEGATIVE (NEGATIVE); UROBILINOGEN,URINE NORMAL (NORMAL)
[2019-06-30 15:50] LABS: BACTERIA,URINE NEGATIVE /HPF; SQUAMOUS EPITHELIAL CELL,UR 0-2 /HPF
[2019-06-30 15:57] LABS: AMPHETAMINE SCREEN, URINE NEGATIVE (NEGATIVE); BARBITURATE SCREEN URINE NEGATIVE (NEGATIVE); BENZODIAZEPINES SCREEN URINE NEGATIVE (NEGATIVE); CANNABINOID SCREEN, URINE NEGATIVE (NEGATIVE); COCAINE SCREEN URINE NEGATIVE (NEGATIVE); METHADONE STAT NEGATIVE (NEGATIVE); METHAMPHETAMINE SCREEN URINE S NEGATIVE (NEGATIVE); OPIATE SCREEN URINE NEGATIVE (NEGATIVE); OXYCODONE STAT NEGATIVE (NEGATIVE); PROPOXYPHENE STAT NEGATIVE (NEGATIVE); TRICYCLIC ANTIDEPRESSANTS SCRE NEGATIVE (NEGATIVE)
[2019-06-30] MEDS ORDERED: RT-ALBUTEROL SULF 2.5 MG/3 ML PRE-MIX VIAL INH STA (16:01)
[2019-06-30 16:08] LABS: BASOPHILS # (AUTO) 0.1 10^3/uL (0.0-0.1); BASOPHILS % (AUTO) 1 % (0-10); EOSINOPHILS # (AUTO) 0.3 10^3/uL (0.0-0.3); EOSINOPHILS % (AUTO) 4 % (0-10); HEMATOCRIT 43 % (35-52); LYMPHOCYTES # (AUTO) 2.9 X 10^3 (1.0-4.0); LYMPHOCYTES % (AUTO) 31 % (12-44); MEAN CORPUSCULAR HEMOGLOBIN 30 PG (25-34); MEAN CORPUSCULAR HGB CONC 35 G/DL (32-36); MEAN CORPUSCULAR VOLUME 88 FL (80-99); MEAN PLATELET VOLUME 10.9 FL (7.4-10.4); MONOCYTES # (AUTO) 0.8 X 10^3 (0.0-1.0); MONOCYTES % (AUTO) 9 % (0-12); NEUTROPHILS # (AUTO) 5.2 X 10^3 (1.8-7.8); NEUTROPHILS % (AUTO) 56 % (42-75); PLATELET COUNT 284 10^3/uL (130-400); RED CELL DISTRIBUTION WIDTH 12.9 % (10.0-14.5); WHITE BLOOD COUNT 9.2 10^3/uL (4.3-11.0)
--- NOTE | 2019-06-30 16:13 | ED Chest Pain ---
General Chief Complaint: General Problems/Pain Stated Complaint: SOB/CHEST TIGHTNESS/L ARM NUMB Nursing Triage Note: Pt to Rm 5 with C/O left chest tightness that radiates to left arm. Pt states it comes and goes, has gotten worse around 1430. Pt also c/o lower back pain and SOB, 98% on RA on arrival. Pt denies any cardiovascular Hx at this time. Nursing Sepsis Screen: No Definite Risk Source: patient, spouse Exam Limitations: no limitations History of Present Illness Date Seen by Provider: Jun 30, 2019 Time Seen by Provider: 15:45 Initial Comments Patient presents to ER by private conveyance with her significant other and chief complaint of chest tightness wrapping all the way around her chest circumferential lasting about 5 minutes starting an hour ago. She was just sitting on the couch all her family watch the football game and she was on her phone not paying attention. She's had for the past 2 weeks been having some difficulty with feeling short of breath at times and it hurts in her chest in general whenever she takes a deep breath. No cough fevers chills history of asthma or COPD. She does not smoke. She does not have hypertension, hyperlipidemia. She has borderline diabetic. No history of coronary disease or primary family history of coronary disease. She does follow with Dr. Wyatt and neurologist Dr. Torres for her idiopathic, intracranial hydrocephalus for which she has been on Diamox. One week ago she had her dose increased from thousand milligrams a day to 2000 mg a day. She's not having any discomfort at this moment. She did not take any aspirin or any other medication for it. She says it resolved spontaneously. She still having some mild pinching pain in her upper left upper extremity and left ribs. Allergies and Home Medications Allergies Coded Allergies: No Known Drug Allergies (Unverified , 12/29/12) Home Medications Levothyroxine Sodium 200 Mcg Tablet, 200 MCG PO DAILY, (Reported) Metformin HCl 500 Mg Tablet, 500 MG PO BID, (Reported) Ondansetron 8 Mg Tab.rapdis, 8 MG PO Q6H PRN for NAUSEA/VOMITING Prescribed by: EPIFANIO LARA on 03/04/19 1303 Oxycodone HCl/Acetaminophen 1 Each Tablet, 1-2 TAB PO Q4HR PRN for PAIN-MODERATE TO SEVERE Prescribed by: RITA VIZCARRA on 11/04/17 1026 Sulfamethoxazole/Trimethoprim 1 Each Tablet, 1 EACH PO BID, (Reported) Patient Home Medication List Home Medication List Reviewed: Yes Review of Systems Review of Systems Constitutional: No chills, No diaphoresis EENTM: No Blurred Vision, No Double Vision Respiratory: Denies Cough, Denies Shortness of Air Cardiovascular: See HPI, Chest Pain; Denies Edema, Denies Lightheadedness Gastrointestinal: Denies Constipated, Denies Diarrhea Genitourinary: Denies Burning, Denies Discharge Musculoskeletal: No back pain, No joint pain Skin: No change in color, No lesions Psychiatric/Neurological: Denies Anxiety, Denies Depressed Past Hvhyqyr-Fpobux-Lfmlss Hx Patient Social History Alcohol Use: Denies Use Recreational Drug Use: No Smoking Status: Never a Smoker Recent Foreign Travel: No Contact w/Someone Who Travel: No Recent Infectious Disease Expo: No Recent Hopitalizations: No Physical Abuse: No Sexual Abuse: No Mistreated: No Fear: No Immunizations Up To Date Tetanus Booster (TDap): Unknown PED Vaccines UTD: No Date of Influenza Vaccine: Jun 17, 2017 Seasonal Allergies Seasonal Allergies: No Past Medical History Surgeries: Yes Hysterectomy Respiratory: No Cardiac: No Neurological: No Reproductive Disorders: No Female Reproductive Disorders: Denies 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 Sexually Transmitted Disease: No HIV/AIDS: No Genitourinary: No Gastrointestinal: No Musculoskeletal: Yes (LEFT ARM 16 YRS OLD) Fractures Endocrine: Yes Hypothyroidsim, Diabetes, Non-Insulin dep HEENT: No Loss of Vision: Denies Hearing Impairment: Denies Cancer: Yes (2018) Cervical Did You Recieve Any Treatments: Yes What Type of Treatment Did You: Surgical Intervention Psychosocial: No Integumentary: No Blood Disorders: No Adverse Reaction/Blood Tranf: No Family Medical History Alcoholism PATERNAL UNCLE Alzheimer's disease PATERNAL GRANDMOTHER Arthritis MATERNAL GRANDFATHER PATERNAL GRANDFATHER Completed stroke MATERNAL GRANDFATHER PATERNAL UNCLE Diabetes mellitus PATERNAL GRANDMOTHER PATERNAL GRANDFATHER Hypertension PATERNAL GRANDFATHER Neoplasm PATERNAL GRANDMOTHER (BREAST CANCER) Respiratory disorder MATERNAL GRNADMOTHER (COPD) Physical Exam Vital Signs Vital Signs - First Documented 06/30/19 15:24 Temp 37.2 Pulse 81 Resp 20 B/P (MAP) 121/79 (93) Pulse Ox 98 O2 Delivery Room Air Capillary Refill : Less Than 3 Seconds Height, Weight, BMI Height: 5'6.00" Weight: 270lbs. 0.0oz. 122.670892cu; 45.00 BMI Method:Stated General Appearance: WD/WN, Anxious HEENT: Pharynx Normal, Moist Mucous Membranes Neck: Full Range of Motion, Normal Inspection, Non Tender, Supple Respiratory: No Chest Non Tender; Lungs Clear, Normal Breath Sounds, No Accessory Muscle Use, No Respiratory Distress, Other (left mid axillary line chest/ribs are mildly tender to palpation we creating a pinching sensation. Left arm medial humerus re-creates a pinching sensation on palpation of the medial biceps) Cardiovascular: Regular Rate, Rhythm, No Edema, Normal Peripheral Pulses Gastrointestinal: Normal Bowel Sounds, Non Tender, Soft Extremity: Normal Capillary Refill, Normal Inspection, Normal Range of Motion, No Calf Tenderness, No Pedal Edema Neurologic/Psychiatric: Alert, Oriented x3, No Motor/Sensory Deficits Skin: Normal Color, Warm/Dry Progress/Results/Core Measures Results/Orders Lab Results Laboratory Tests Test 06/30/19 15:30 06/30/19 15:32 06/30/19 15:34 Range/Units White Blood Count 9.2 4.3-11.0 10^3/uL Red Blood Count 4.93 4.35-5.85 10^6/uL Hemoglobin 15.0 11.5-16.0 G/DL Hematocrit 43 35-52 % Mean Corpuscular Volume 88 80-99 FL Mean Corpuscular Hemoglobin 30 25-34 PG Mean Corpuscular Hemoglobin Concent 35 32-36 G/DL Red Cell Distribution Width 12.9 10.0-14.5 % Platelet Count 284 130-400 10^3/uL Mean Platelet Volume 10.9 H 7.4-10.4 FL Neutrophils (%) (Auto) 56 42-75 % Lymphocytes (%) (Auto) 31 12-44 % Monocytes (%) (Auto) 9 0-12 % Eosinophils (%) (Auto) 4 0-10 % Basophils (%) (Auto) 1 0-10 % Neutrophils # (Auto) 5.2 1.8-7.8 X 10^3 Lymphocytes # (Auto) 2.9 1.0-4.0 X 10^3 Monocytes # (Auto) 0.8 0.0-1.0 X 10^3 Eosinophils # (Auto) 0.3 0.0-0.3 10^3/uL Basophils # (Auto) 0.1 0.0-0.1 10^3/uL Prothrombin Time 13.5 12.2-14.7 SEC INR Comment 1.0 0.8-1.4 Activated Partial Thromboplast Time 30 24-35 SEC Sodium Level 141 135-145 MMOL/L Potassium Level 3.7 3.6-5.0 MMOL/L Chloride Level 110 H 98-107 MMOL/L Carbon Dioxide Level 20 L 21-32 MMOL/L Anion Gap 11 5-14 MMOL/L Blood Urea Nitrogen 11 7-18 MG/DL Creatinine 1.26 0.60-1.30 MG/DL Estimat Glomerular Filtration Rate 50 BUN/Creatinine Ratio 9 Glucose Level 118 H 70-105 MG/DL Calcium Level 9.1 8.5-10.1 MG/DL Corrected Calcium 8.5-10.1 MG/DL Magnesium Level 2.1 1.6-2.4 MG/DL Total Bilirubin 0.3 0.1-1.0 MG/DL Aspartate Amino Transf (AST/SGOT) 18 5-34 U/L Alanine Aminotransferase (ALT/SGPT) 30 0-55 U/L Alkaline Phosphatase 109 40-136 U/L Myoglobin 74.4 10.0-92.0 NG/ML Troponin I < 0.028 <0.028 NG/ML B-Type Natriuretic Peptide 15.6 <100.0 PG/ML Total Protein 8.0 6.4-8.2 GM/DL Albumin 4.8 H 3.2-4.5 GM/DL Urine Color YELLOW Urine Clarity CLEAR Urine pH 6.5 5-9 Urine Specific [place] 1.010 L 1.016-1.022 Urine Protein NEGATIVE NEGATIVE Urine Glucose (UA) NEGATIVE NEGATIVE Urine Ketones NEGATIVE NEGATIVE Urine Nitrite NEGATIVE NEGATIVE Urine Bilirubin NEGATIVE NEGATIVE Urine Urobilinogen NORMAL NORMAL MG/DL Urine Leukocyte Esterase NEGATIVE NEGATIVE Urine RBC (Auto) NEGATIVE NEGATIVE Urine RBC NONE /HPF Urine WBC NONE /HPF Urine Squamous Epithelial Cells 0-2 /HPF Urine Crystals NONE /LPF Urine Bacteria NEGATIVE /HPF Urine Casts NONE /LPF Urine Mucus NEGATIVE /LPF Urine Culture Indicated NO Urine Opiates Screen NEGATIVE NEGATIVE Urine Oxycodone Screen NEGATIVE NEGATIVE Urine Methadone Screen NEGATIVE NEGATIVE Urine Propoxyphene Screen NEGATIVE NEGATIVE Urine Barbiturates Screen NEGATIVE NEGATIVE Ur Tricyclic Antidepressants Screen NEGATIVE NEGATIVE Urine Phencyclidine Screen NEGATIVE NEGATIVE Urine Amphetamines Screen NEGATIVE NEGATIVE Urine Methamphetamines Screen NEGATIVE NEGATIVE Urine Benzodiazepines Screen NEGATIVE NEGATIVE Urine Cocaine Screen NEGATIVE NEGATIVE Urine Cannabinoids Screen NEGATIVE NEGATIVE Glucometer 118 H 70-110 MG/DL My Orders Orders - ALETHEA QUINONES Continuous Ekg Monitoring (06/30/19 15:18) Ekg Tracing (06/30/19 15:18) Ua Culture If Indicated (06/30/19:18) Drug Screen Stat (Urine) (06/30/19:18) Urine Bedside (06/30/19 15:18) Cbc With Automated Diff (06/30/19 16:01) Magnesium (06/30/19 16:01) Chest 1 View, Ap/Pa Only (06/30/19 16:) Cardiac Profile 1 (06/30/19 16:) Comprehensive Metabolic Panel (06/30/19 16:) Myoglobin Serum (06/30/19 16:01) Protime With Inr (06/30/19 16:01) Partial Thromboplastin Time (06/30/19 16:01) O2 (06/30/19 16:01) Ed Iv/Invasive Line Start (06/30/19 16:01) BNP (06/30/19 16:01) Aspirin Chewable Tablet (Baby Aspirin Ch (06/30/19 16:15) Albuterol Pre-Mix Nebs (Rt) (Proventil (06/30/19 16:01) Svn Small Volume Nebulizer (06/30/19 16:01) Accucheck Stat ONCE (06/30/19 16:03) Medications Given in ED Current Medications Medications Dose Ordered Sig/Ladarius Route Start Time Stop Time Status Last Admin Dose Admin Aspirin 324 mg ONCE ONCE PO 06/30/19 16:15 06/30/19 16:16 DC 06/30/19 16:07 324 MG Vital Signs/I&O 06/30/19 15:24 Temp 37.2 Pulse 81 Resp 20 B/P (MAP) 121/79 (93) Pulse Ox 98 O2 Delivery Room Air Blood Pressure Mean: 93 Progress Progress Note #1: Time: 16:08 Progress Note Chest pain is fleeting and resolve spontaneously. The past couple weeks she's had some pain on deep inspiration in her chest. Sounds like possible pleuritic pain. She does not have any recent history of a cough or infectious history. Plan to give her albuterol, aspirin get chest x-ray and labs. Urine and bedside is negative. Diamox can cause paresthesias which she says she has had in her feet with tingling and may also explain her left arm. Diamox can also have increased risk of causing lactic acid production when combined with metformin. Progress Note #2: Time: 17:53 Progress Note Patient's pain has not come back. She still having some pinching sensation in her left arm which could be a paresthesia related to her Diamox versus other. There does not seem to be a pinched nerve or history to support a radiculopathy. We've suggested NSAIDs as this would help if it was pleuritic in nature. It is related to Diamox state probably will not make much difference. She can follow- up with her neurologist by calling tomorrow during business hours. We've given her good return precautions and she is happy with the plan. Initial ECG Impression Date: Jun 30, 2019 Initial ECG Impression Time: 15:24 Initial ECG Rate: 80 Initial ECG Rhythm: Normal Sinus Initial ECG Intervals: Normal Initial ECG Impression: Normal Initial ECG Comparisson: No Previous ECG Available Comment No ST elevation or depression. Diagnostic Imaging Diagonstic Imaging: Xray Plain Films/CT/US/NM/MRI: chest (1v) Reviewed: Reviewed by Me Departure Impression Primary Impression: Chest pain Qualified Codes: R07.1 - Chest pain on breathing Additional Impression: Left upper arm pain Disposition: 01 HOME, SELF-CARE Condition: Stable Departure-Patient Inst. Decision time for Depature: 17:54 Referrals: [facility] [place] ([place]/Family) Primary Care Physician Patient Instructions: Chest Pain That Is Not Caused by the Heart (DC) Add. Discharge Instructions: Please call your neurologist tomorrow and request follow-up for your sensations. If your pain comes back and persists or is accompanied with other worrisome symptoms such as fever, vomiting, shortness of breath then I am for you to return to the nearest ER for further evaluation area You may try Tylenol and ibuprofen as necessary for pain. All discharge instructions reviewed with patient and/or family. Voiced understanding. ALETHEA QUINONES Jun 30, 2019 16:13
[2019-06-30] MEDS ORDERED: ASPIRIN 81 MG CHEW (CHILDREN'S ASA) PO ONE (16:15)
[2019-06-30 16:19] LABS: ALANINE AMINOTRANSFERASE 30 U/L (0-55); ALBUMIN 4.8 GM/DL (3.2-4.5); ALKALINE PHOSPHATASE 109 U/L (40-136); BILIRUBIN,TOTAL 0.3 MG/DL (0.1-1.0); BUN/CREATININE RATIO 9; CALCIUM 9.1 MG/DL (8.5-10.1); CARBON DIOXIDE 20 MMOL/L (21-32); CHLORIDE 110 MMOL/L (98-107); CREATININE SERUM 1.26 MG/DL (0.60-1.30); GFR ESTIMATED 50; GLUCOSE 118 MG/DL (70-105); MAGNESIUM 2.1 MG/DL (1.6-2.4); POTASSIUM 3.7 MMOL/L (3.6-5.0); SODIUM 141 MMOL/L (135-145)
[2019-06-30 16:23] LABS: PROTHROMBIN TIME PATIENT 13.5 SEC (12.2-14.7)
--- NOTE | 2019-06-30 16:37 | Diagnostic Imaging Report ---
Portable erect AP chest at 4:27. Indication: Chest pain. There are no prior chest examinations available for comparison. The heart size is within normal limits. There are crowded bronchovascular markings in the right infrahilar region and there is elevation of the right hemidiaphragm.. The increased density in this area may merely be secondary to the bronchovascular markings alone. The possibility that there is an element of pneumonia/atelectasis would be less likely but should still be considered. Clinical followup is recommended. The lungs are otherwise clear. The mediastinum is not widened. The osseous structures are intact. Impression: 1. The increased density in the right infrahilar region is probably related to crowding of bronchovascular markings as opposed to pneumonia/atelectasis. Even so, clinical followup is recommended. If further imaging is desired, followup PA and lateral chest would be recommended. 2. There is no acute cardiopulmonary abnormality noted otherwise. Dictated by: Dictated on workstation # [id number]
[2019-06-30 18:03] VITALS: BP 105/78
== END 2019-06-30 18:03 | disposition home or self-care (01) ==
LOC: EDUNIT# 15:16 → ER 15:17
DX: R07.9 Chest pain, unspecified (principal); M79.622 Pain in left upper arm; I25.10 Atherosclerotic heart disease of native coronary artery without angina pectoris; E11.9 Type 2 diabetes mellitus without complications; E03.9 Hypothyroidism, unspecified; Z85.41 Personal history of malignant neoplasm of cervix uteri; Z79.84 Long term (current) use of oral hypoglycemic drugs; Z90.710 Acquired absence of both cervix and uterus; Z87.81 Personal history of (healed) traumatic fracture; Z82.49 Family history of ischemic heart disease and other diseases of the circulatory system; Z80.3 Family history of malignant neoplasm of breast
CPT/HCPCS: 36415; 71045; 80053; 80306; 81000; 82962; 83735; 83874; 83880; 84484; 84703; 85025; 85610; 85730; 93005

== ENCOUNTER → 2019-07-18 | Outpatient (CLI) | payer OTHER ==
--- NOTE | 2019-07-18 18:18 | Diagnostic Imaging Report ---
PROCEDURE: MR angiography of the brain without the use of contrast. TECHNIQUE: 3D [id number] non contrast enhanced MR angiography of the head was performed. A source data was reformatted into rotating MIP projections. INDICATION: Headache. Dizziness. FINDINGS: The T1 weighted images of the brain show normal cortical gyral pattern and ventricles in an axial plane. No intracranial hemorrhage is demonstrated. No mass effect or extra-axial fluid collections. The basal cisterns and CP angles are normal. MRV shows good enhancement of the sagittal sinus with dominant flow through the left transverse sinus and sigmoid sinus. The right transverse sinus shows only minimal flow. The right sigmoid sinus is small suggesting this is likely chronic or congenital in nature. IMPRESSION: 1. MRV showing normal-appearing sagittal sinus as well as dominant flow through the left transverse sinus and sigmoid sinus. 2. 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 Dictated by: Dictated on workstation # [id number]
== END ==
LOC: RAD 07-11 07:26
PROVIDERS: ATTEND Psychiatry & Neurology Neurology
DX: G93.2 Benign intracranial hypertension (principal)
CPT/HCPCS: 70544

== ENCOUNTER 2020-06-30 11:11 | Inpatient (IN) | payer BC, OTHER ==
[~2020-06-30] VITALS: Ht 167 cm; Wt 117.1 kg
[2020-06-30] VITALS (13 sets, daily range): BP systolic 103–145; BP diastolic 67–115
[~2020-06-30 11:11] MED LIST changes: -MECL-106 PO; +MECL-149 PO; -OXYC-465 PO; +OXYC-556 PO
--- NOTE | 2020-06-30 11:41 | ED Cough/URI ---
General Stated Complaint: COVID+ Source: patient Exam Limitations: no limitations History of Present Illness Date Seen by Provider: Jun 30, 2020 Time Seen by Provider: 11:36 Initial Comments To ER with reports that she is positive for coronavirus and very short of breath. She tested positive on Monday of last week and was symptomatic on the Monday before. On arrival to ER her oxygen saturation is 67% Timing/Duration: just prior to arrival Severity/Quality: moderate Associated Symptoms: cough, shortness of breath Allergies and Home Medications Allergies Coded Allergies: No Known Drug Allergies (Unverified , 12/29/12) Home Medications Levothyroxine Sodium 200 Mcg Tablet, 200 MCG PO DAILY, (Reported) Metformin HCl 500 Mg Tablet, 500 MG PO BID, (Reported) Ondansetron 8 Mg Tab.rapdis, 8 MG PO Q6H PRN for NAUSEA/VOMITING Prescribed by: EPIFANIO LARA on 03/04/19 1303 Oxycodone HCl/Acetaminophen 1 Each Tablet, 1-2 TAB PO Q4HR PRN for PAIN-MODERATE TO SEVERE Prescribed by: RITA VIZCARRA on 11/04/17 1026 Sulfamethoxazole/Trimethoprim 1 Each Tablet, 1 EACH PO BID, (Reported) Patient Home Medication List Home Medication List Reviewed: Yes Review of Systems Review of Systems Constitutional: see HPI, malaise, weakness EENTM: see HPI Respiratory: see HPI Cardiovascular: no symptoms reported Genitourinary: no symptoms reported Musculoskeletal: no symptoms reported Skin: no symptoms reported Psychiatric/Neurological: No Symptoms Reported Hematologic/Lymphatic: No Symptoms Reported Past Sjsvogp-Gdtzwq-Ovakmd Hx Patient Social History Recent Hopitalizations: No Immunizations Up To Date Tetanus Booster (TDap): Unknown PED Vaccines UTD: No Date of Influenza Vaccine: Jun 17, 2017 Seasonal Allergies Seasonal Allergies: No Past Medical History Surgeries: Yes Hysterectomy Respiratory: No Cardiac: No Neurological: No Reproductive Disorders: No Female Reproductive Disorders: Denies 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 Sexually Transmitted Disease: No HIV/AIDS: No Genitourinary: No Gastrointestinal: No Musculoskeletal: Yes (LEFT ARM 18 YRS OLD) Fractures Endocrine: Yes Hypothyroidsim, Diabetes, Non-Insulin dep HEENT: No Loss of Vision: Denies Hearing Impairment: Denies Cancer: Yes (2018) Cervical Did You Recieve Any Treatments: Yes What Type of Treatment Did You: Surgical Intervention Psychosocial: No Integumentary: No Blood Disorders: No Adverse Reaction/Blood Tranf: No Family Medical History Alcoholism PATERNAL UNCLE Alzheimer's disease PATERNAL GRANDMOTHER Arthritis MATERNAL GRANDFATHER PATERNAL GRANDFATHER Completed stroke MATERNAL GRANDFATHER PATERNAL UNCLE Diabetes mellitus PATERNAL GRANDMOTHER PATERNAL GRANDFATHER Hypertension PATERNAL GRANDFATHER Neoplasm PATERNAL GRANDMOTHER (BREAST CANCER) Respiratory disorder MATERNAL GRNADMOTHER (COPD) Physical Exam Vital Signs - First Documented 06/30/20 11:30 Temp 36.1 Pulse 82 Resp 42 B/P (MAP) 118/68 (85) Pulse Ox 95 O2 Delivery OxyMask Capillary Refill : Height: 5'6.00" Weight: 270lbs. 0.0oz. 122.910910ew; 45.00 BMI Method:Stated General Appearance: moderate distress, obese, other (oxygen saturation is 67% on arrival to ER. Increased to 88% on oxygen mask. That was at 6 L, subsequently increased to 98% almost immediately with proning) Eyes: Bilateral Eye Normal Inspection, Bilateral Eye PERRL, Bilateral Eye EOMI HEENT: PERRL/EOMI, normal ENT inspection Neck: non-tender, full range of motion Respiratory: normal breath sounds, no respiratory distress, no accessory muscle use Cardiovascular: regular rate, rhythm, no murmur Gastrointestinal: normal bowel sounds, non tender, soft Neurologic/Psychiatric: normal mood/affect, oriented x 3, other (lethargic) Skin: normal color, warm/dry Focused Exam Lactate Level 06/30/20 11:50: Lactic Acid Level 2.10*H Lactic Acid Level Laboratory Tests Test 06/30/20 11:50 Lactic Acid Level 2.10 MMOL/L (0.50-2.00) *H Progress/Results/Core Measures Suspected Sepsis SIRS Temperature: Pulse: Respiratory Rate: Laboratory Tests 06/30/20 11:50: White Blood Count 7.8 Blood Pressure / Mean: 06/30/20 11:50: Lactic Acid Level 2.10*H Laboratory Tests 06/30/20 11:50: Creatinine 1.05, Platelet Count 233, Total Bilirubin 0.5 Results/Orders Lab Results Laboratory Tests Test 06/30/20 11:50 06/30/20 11:55 Range/Units White Blood Count 7.8 4.3-11.0 10^3/uL Red Blood Count 4.24 3.80-5.11 10^6/uL Hemoglobin 13.1 11.5-16.0 g/dL Hematocrit 40 35-52 % Mean Corpuscular Volume 93 80-99 fL Mean Corpuscular Hemoglobin 31 25-34 pg Mean Corpuscular Hemoglobin Concent 33 32-36 g/dL Red Cell Distribution Width 11.6 10.0-14.5 % Platelet Count 233 130-400 10^3/uL Mean Platelet Volume 11.0 9.0-12.2 fL Immature Granulocyte % (Auto) 1 % Neutrophils (%) (Auto) 87 H 42-75 % Lymphocytes (%) (Auto) 10 L 12-44 % Monocytes (%) (Auto) 2 0-12 % Eosinophils (%) (Auto) 0 0-10 % Basophils (%) (Auto) 0 0-10 % Neutrophils # (Auto) 6.8 1.8-7.8 10^3/uL Lymphocytes # (Auto) 0.8 L 1.0-4.0 10^3/uL Monocytes # (Auto) 0.1 0.0-1.0 10^3/uL Eosinophils # (Auto) 0.0 0.0-0.3 10^3/uL Basophils # (Auto) 0.0 0.0-0.1 10^3/uL Immature Granulocyte # (Auto) 0.1 0.0-0.1 10^3/uL Neutrophils % (Manual) 87 % Lymphocytes % (Manual) 11 % Monocytes % (Manual) 2 % Eosinophils % (Manual) 0 % Basophils % (Manual) 0 % Band Neutrophils 0 % Blood Morphology Comment NORMAL D-Dimer 1.18 H 0.00-0.49 UG/ML Sodium Level 140 135-145 MMOL/L Potassium Level 3.8 3.6-5.0 MMOL/L Chloride Level 101 98-107 MMOL/L Carbon Dioxide Level 26 21-32 MMOL/L Anion Gap 13 5-14 MMOL/L Blood Urea Nitrogen 13 7-18 MG/DL Creatinine 1.05 0.60-1.30 MG/DL Estimat Glomerular Filtration Rate > 60 BUN/Creatinine Ratio 12 Glucose Level 243 H 70-105 MG/DL Lactic Acid Level 2.10 *H 0.50-2.00 MMOL/L Calcium Level 9.1 8.5-10.1 MG/DL Corrected Calcium 9.3 8.5-10.1 MG/DL Total Bilirubin 0.5 0.1-1.0 MG/DL Aspartate Amino Transf (AST/SGOT) 43 H 5-34 U/L Alanine Aminotransferase (ALT/SGPT) 63 H 0-55 U/L Alkaline Phosphatase 53 40-136 U/L C-Reactive Protein High Sensitivity 31.32 H 0.00-0.50 MG/DL Total Protein 7.1 6.4-8.2 GM/DL Albumin 3.7 3.2-4.5 GM/DL Procalcitonin 0.10 H <0.10 NG/ML Serum Test, Qualitative NEGATIVE NEGATIVE Blood Gas Puncture Site LEFT ULNAR Blood Gas Patient Temperature 96.6 Arterial Blood pH 7.45 H 7.37-7.43 Arterial Blood Partial Pressure CO2 33 L 35-45 MMHG Arterial Blood Partial Pressure O2 68 L 79-93 MMHG Arterial Blood HCO3 23 23-27 MMOL/L Arterial Blood Total CO2 24.1 21.0-31.0 MMOL/L Arterial Blood Oxygen Saturation 95 94-100 % Arterial Blood Base Excess -0.6 -2.5-2.5 MMOL/L Joshua Test YES-POS Blood Gas Ventilator Setting NO Blood Gas Inspired Oxygen 15 My Orders Orders - EPIFANIO LARA APRN Cbc With Automated Diff (06/30/20 11:34) Comprehensive Metabolic Panel (06/30/20 11:34) Hs C Reactive Protein (06/30/20 11:34) Fibrin Degradation Products (06/30/20 11:34) Hcg,Qualitative Serum (06/30/20 11:34) Procalcitonin (Pct) (06/30/20 11:34) Blood Culture (06/30/20 11:34) Lactic Acid Analyzer (06/30/20 11:34) Chest 1 View, Ap/Pa Only (06/30/20 11:34) Dexamethasone Injection (Decadron Inje (06/30/20 11:45) Manual Differential (06/30/20 11:50) Ketorolac Injection (Toradol Injection) (06/30/20 12:30) Ct Angio Chest W (06/30/20 12:33) Iohexol Injection (Omnipaque 350 Mg/Ml 1 (06/30/20 12:45) Received Contrast (Hold Metformin- Contr (06/30/20 12:45) Sodium Chloride Flush (Catheter Flush Sy (06/30/20 12:45) Ns (Ivpb) (Sodium Chloride 0.9% Ivpb Bag (06/30/20 12:45) Covid-19 External Lab Results (06/30/20 12:51) Medications Given in ED Current Medications Medications Dose Ordered Sig/Ladarius Route Start Time Stop Time Status Last Admin Dose Admin Dexamethasone Sodium Phosphate 10 mg ONCE ONCE IV 06/30/20 11:45 06/30/20 11:46 DC 06/30/20 11:54 10 MG Ketorolac Tromethamine 15 mg ONCE ONCE IVP 06/30/20 12:30 06/30/20 12:31 DC 06/30/20 12:22 15 MG Vital Signs/I&O 06/30/20 11:30 Temp 36.1 Pulse 82 Resp 42 B/P (MAP) 118/68 (85) Pulse Ox 95 O2 Delivery OxyMask Capillary Refill : Diagnostic Imaging Diagonstic Imaging: Xray Plain Films/CT/US/NM/MRI: chest Comments NAME: MELCHOR FITCH [facility] REC#: [id number] PT STATUS: REG ER : 1990 PHYSICIAN: EPIFANIO LARA APRN ADMIT DATE: 06/30/20/ER Draft Date of Exam:06/30/20 CHEST 1 VIEW, AP/PA ONLY INDICATION: Covid positive, shortness of air. COMPARISON: June 30, 2019. TECHNIQUE: Single radiograph of the chest dated June 30, 2020. FINDINGS: The cardiac silhouette is predominantly obscured. Pulmonary vasculature is obscured. Significantly low lung volumes with extensive left greater than right bilateral pulmonary opacities. No large-volume pleural effusion. No pneumothorax. No acute osseous abnormality. IMPRESSION: Severely low lung volumes with extensive bilateral pulmonary opacities. Dictated on workstation # [id number] Dict: 06/30/20 1253 Trans: 06/30/20 1258 [facility] [id number] Interpreted by: ALEXIA ESPAÑA MD Electronically signed by: Departure Impression Primary Impression: Hypoxia Additional Impression: COVID-19 Disposition: ADMITTED INPATIENT Condition: Critical Admissions Decision to Admit Reason: Admit from ER (General) Decision to Admit/Date: Jun 30, 2020 Time/Decision to Admit Time: 11:40 Departure-Patient Inst. Referrals: [facility] (PCP) Primary Care Physician MARIBEL ISIDRO MD (Family) Primary Care Physician EPIFANIO LARA APRN Jun 30, 2020 11:41
[2020-06-30 12:06] LABS: BASOPHILS % (AUTO) 0 % (0-10); EOSINOPHILS % (AUTO) 0 % (0-10); HEMOGLOBIN 13.1 g/dL (11.5-16.0)
[2020-06-30 12:08] LABS: HEMATOCRIT 40 % (35-52); LYMPHOCYTES # (AUTO) 0.8 10^3/uL (1.0-4.0); LYMPHOCYTES % (AUTO) 10 % (12-44); MEAN CORPUSCULAR HEMOGLOBIN 31 pg (25-34); MEAN CORPUSCULAR HGB CONC 33 g/dL (32-36); MEAN CORPUSCULAR VOLUME 93 fL (80-99); MONOCYTES # (AUTO) 0.1 10^3/uL (0.0-1.0); MONOCYTES % (AUTO) 2 % (0-12); NEUTROPHILS # (AUTO) 6.8 10^3/uL (1.8-7.8); NEUTROPHILS % (AUTO) 87 % (42-75); PLATELET COUNT 233 10^3/uL (130-400); WHITE BLOOD COUNT 7.8 10^3/uL (4.3-11.0)
[2020-06-30 12:17] LABS: ALBUMIN 3.7 GM/DL (3.2-4.5)
[2020-06-30 12:18] LABS: ABG BASE EXCESS -0.6 MMOL/L (-2.5-2.5); ABG OXYGEN SATURATION 95 % (94-100); ABG PCO2 33 MMHG (35-45); ABG PH 7.45 (7.37-7.43); ABG TCO2 24.1 MMOL/L (21.0-31.0)
[2020-06-30 12:18] LABS: CHLORIDE 101 MMOL/L (98-107); POTASSIUM 3.8 MMOL/L (3.6-5.0); SODIUM 140 MMOL/L (135-145)
[2020-06-30 12:19] LABS: CALCIUM 9.1 MG/DL (8.5-10.1)
[2020-06-30 12:19] LABS: ALLENS TEST YES-POS; INSPIRED O2 15
[2020-06-30 12:20] LABS: ABG PO2 68 MMHG (79-93); PATIENT TEMP 96.6; VENTILATOR NO
[2020-06-30 12:20] LABS: GLUCOSE 243 MG/DL (70-105); TOTAL PROTEIN 7.1 GM/DL (6.4-8.2)
[2020-06-30 12:21] LABS: CARBON DIOXIDE 26 MMOL/L (21-32)
[2020-06-30 12:22] LABS: BILIRUBIN,TOTAL 0.5 MG/DL (0.1-1.0)
[2020-06-30 12:23] LABS: ALKALINE PHOSPHATASE 53 U/L (40-136)
[2020-06-30 12:24] LABS: CREATININE SERUM 1.05 MG/DL (0.60-1.30); GFR ESTIMATED > 60
[2020-06-30 12:25] LABS: BUN/CREATININE RATIO 12
[2020-06-30 12:26] LABS: ALANINE AMINOTRANSFERASE 63 U/L (0-55)
[2020-06-30] MEDS ORDERED: KETOROLAC 30 MG/ML VIAL IVP ONE (12:30)
[2020-06-30 12:31] LABS: BAND NEUTROPHILS 0 %; BASOPHILS % (MANUAL) 0 %; EOSINOPHILS % (MANUAL) 0 %; LYMPHOCYTES % (MANUAL) 11 %; MONOCYTES % (MANUAL) 2 %; NEUTROPHILS % (MANUAL) 87 %; RBC MORPH NORMAL
[2020-06-30] MEDS ORDERED: CATHETER FLUSH 10 ML SYR IV PRN ×2 (12:45→15:00)
[2020-06-30] MEDS ORDERED: NS 100 ML (IVPB) BAG IV ONE (12:45)
[2020-06-30] MEDS ORDERED: IOHEXOL 350 MG/ML 100 ML (OMNIPAQUE 350) VIAL IV ONE (12:45)
[2020-06-30] MEDS ORDERED: HOLD METFORMIN - RECEIVED CONTRAST 20 ML VIAL IV SCH (12:45)
--- NOTE | 2020-06-30 12:58 | Diagnostic Imaging Report ---
INDICATION: Covid positive, shortness of air. COMPARISON: June 30, 2019. TECHNIQUE: Single radiograph of the chest dated June 30, 2020. FINDINGS: The cardiac silhouette is predominantly obscured. Pulmonary vasculature is obscured. Significantly low lung volumes with extensive left greater than right bilateral pulmonary opacities. No large-volume pleural effusion. No pneumothorax. No acute osseous abnormality. IMPRESSION: Severely low lung volumes with extensive bilateral pulmonary opacities. Dictated by: Dictated on workstation # [id number]
--- NOTE | 2020-06-30 13:45 | Diagnostic Imaging Report ---
INDICATION: COVID positive patient, shortness of breath and elevated d-dimer. TECHNIQUE: Multiple contiguous axial images were obtained through the chest after uneventful bolus administration of intravenous contrast. 3D reconstructed CTA MIP acquisitions were also performed. Auto Exposure Controls were utilized during the CT exam to meet ALARA standards for radiation dose reduction. COMPARISON: There is no prior chest CTA for comparison. FINDINGS: The thoracic aorta shows no evidence of aneurysm or dissection. Great vessel origins are patent and without stenosis. The pulmonary parenchymal vessels are well-opacified with no CT evidence of pulmonary emboli. There is no significant adenopathy in the mediastinum or samia or axillary regions. There is no pleural or pericardial fluid. Lung parenchymal windows demonstrate marked groundglass and alveolar infiltrates throughout both lungs, somewhat worse in the lower lobes and in the upper lobes, but involving all five lobes. Visualized portions of the upper abdomen demonstrate diffuse fatty infiltration of the liver. IMPRESSION: No evidence of pulmonary emboli or aortic dissection or aneurysm. Severe COVID pneumonia throughout all lobes. No pleural fluid or adenopathy. Marked fatty infiltration of the liver. Dictated by: Dictated on workstation # [id number]
--- NOTE | 2020-06-30 14:00 | NUR ---
MELCHOR FITCH admitted to room CU9-1, with an admitting diagnosis of COVID-19, on 06/30/20 from ER via PT BED, accompanied by BETH ORELLANA. MELCHOR FITCH introduced to surroundings, call light, bed controls, phone, TV, temperature control, lights, meal times, smoking policy, visitor policy, side rail policy, bathrooms and showers. Patient Rights given to patient in the handbook. MELCHOR FITCH verbalizes understanding that [facility] is not responsible for the loss or damage to any personal effects or valuables that are kept in the patients possession during their hospitalization. Patient and/or family were informed about the Rapid Response Team and its purpose.
[2020-06-30] MEDS ORDERED: LACTATED RINGERS 1,000 ML IV ONE (14:21)
[2020-06-30] MEDS ORDERED: LACTATED RINGERS 1,000 ML IV SCH (15:00)
[2020-06-30] MEDS ORDERED: ENOXAPARIN 40 MG/0.4 ML (LOVENOX) SYR SC SCH (15:00)
[2020-06-30] MEDS ORDERED: morphine INJ 4 MG/ML 1 ML (VIAL/SYRINGE) ONE (15:36)
[2020-06-30] MEDS: morphine INJ 4 MG/ML 1 ML (VIAL/SYRINGE) IVP PRN ×2 (15:52→21:09)
--- NOTE | 2020-06-30 15:59 | Pulmonary History & Physicial ---
History of Present Illness History of Present Illness Date Seen by Provider: Jun 30, 2020 Time Seen by Provider: 15:54 Date of Admission Allergies and Home Medications Allergies Coded Allergies: No Known Drug Allergies (Unverified , 12/29/12) Home Medications Levothyroxine Sodium 200 Mcg Tablet, 200 MCG PO DAILY, (Reported) Metformin HCl 500 Mg Tablet, 500 MG PO BID, (Reported) Ondansetron 8 Mg Tab.rapdis, 8 MG PO Q6H PRN for NAUSEA/VOMITING Prescribed by: EPIFANIO LARA on 03/04/19 1303 Oxycodone HCl/Acetaminophen 1 Each Tablet, 1-2 TAB PO Q4HR PRN for PAIN-MODERATE TO SEVERE Prescribed by: RITA VIZCARRA on 11/04/17 1026 Sulfamethoxazole/Trimethoprim 1 Each Tablet, 1 EACH PO BID, (Reported) Past Jjwkdcm-Bukxqb-Tatkxk Hx Patient Social History Alcohol Use: Denies Use Recreational Drug Use: No Smoking Status: Never a Smoker Recent Foreign Travel: No Contact w/Someone Who Travel: No Recent Infectious Disease Expo: Yes Recent Hopitalizations: No Physical Abuse: No Sexual Abuse: No Immunizations Up To Date Tetanus Booster (TDap): Unknown PED Vaccines UTD: No Date of Influenza Vaccine: Jun 17, 2017 Seasonal Allergies Seasonal Allergies: No Past Medical History Surgeries: Yes Hysterectomy Respiratory: No Cardiac: No Neurological: No Reproductive Disorders: No Female Reproductive Disorders: Denies [employer] History: Hysterectomy Sexually Transmitted Disease: No HIV/AIDS: No Genitourinary: No Gastrointestinal: No Musculoskeletal: Yes (LEFT ARM 18 YRS OLD) Fractures Endocrine: Yes Hypothyroidsim, Diabetes, Non-Insulin dep HEENT: No Loss of Vision: Denies Hearing Impairment: Denies Cancer: Yes (2018) Cervical Did You Recieve Any Treatments: Yes What Type of Treatment Did You: Surgical Intervention Psychosocial: No Integumentary: No Blood Disorders: No Adverse Reaction/Blood Tranf: No Family Medical History Alcoholism PATERNAL UNCLE Alzheimer's disease PATERNAL GRANDMOTHER Arthritis MATERNAL GRANDFATHER PATERNAL GRANDFATHER Completed stroke MATERNAL GRANDFATHER PATERNAL UNCLE Diabetes mellitus PATERNAL GRANDMOTHER PATERNAL GRANDFATHER Hypertension PATERNAL GRANDFATHER Neoplasm PATERNAL GRANDMOTHER (BREAST CANCER) Respiratory disorder MATERNAL GRNADMOTHER (COPD) Exam Exam Vital Signs Date Time Temp Pulse Resp B/P (MAP) Pulse Ox O2 Delivery O2 Flow Rate FiO2 06/30/20 14:00 37.1 06/30/20 13:32 64 28 134/82 97 10.00 06/30/20 11:30 36.1 82 42 118/68 (85) 95 OxyMask Height & Weight Height: 5'6.00" Weight: 270lbs. 0.0oz. 122.548431uv; 43.00 BMI Method:Stated Capillary Refill: Less Than 3 Seconds Gastrointestinal: normal bowel sounds, non tender, soft Results Lab Laboratory Tests 06/30/20 11:50 Assessment/Plan Assessment/Plan Admission Status: Inpatient Order (span 2 midnights) Reason for Inpatient Admission: hypoxia COVID + Pneumonia -Start Remdesivir -Symptom onset was 10 days ago -Daily CMPs -Start Convalescent plasma -Pt understand these are EUA medications and consents to use. -Change oxy mask to Vapotherm -Decadron Elevated LFTs -Monitor Metabolic Lactic acidosis -IVF -Monitor LUBNA DOMINGUEZ DO Jun 30, 2020 15:59
[2020-06-30] MEDS ORDERED: REMDESIVIR INJ (NON-FORMULARY) 200 MG in NS (IVPB) 210 ML IV ONE (16:00)
[2020-06-30] MEDS ORDERED: ONDANSETRON 4 MG/2 ML (SDV) Z0FRAN IVP PRN (16:00)
[2020-06-30] MEDS ORDERED: inSUlin ASPART (NovoLOG) 1 UNIT/0.01 ML (CHARGE PER UNIT) ONE (16:16)
[2020-06-30] MEDS: inSUlin ASPART (NovoLOG) 1 UNIT/0.01 ML (CHARGE PER UNIT) SC SCH ×2 (16:23→23:19)
[2020-06-30] MEDS ORDERED: NS IV 500 ML 500 ML ONE (19:50)
[2020-06-30] MEDS ORDERED: LORazepam INJ 2 MG/ML (ATIVAN) VIAL ONE (21:28)
[2020-06-30] MEDS: LORazepam INJ 2 MG/ML (ATIVAN) VIAL IVP PRN (21:41)
[2020-07-01] VITALS (28 sets, daily range): BP systolic 103–133; BP diastolic 58–93
[2020-07-01] MEDS: RT-ALBUTEROL INHALER HFA (VENTOLIN HFA) 18 GM IH SCH ×5 (03:00→20:30)
[2020-07-01 03:47] LABS: BASOPHILS % (AUTO) 0 % (0-10); EOSINOPHILS % (AUTO) 0 % (0-10); HEMATOCRIT 37 % (35-52); HEMOGLOBIN 12.4 g/dL (11.5-16.0); LYMPHOCYTES # (AUTO) 0.9 10^3/uL (1.0-4.0); LYMPHOCYTES % (AUTO) 12 % (12-44); MEAN CORPUSCULAR HEMOGLOBIN 31 pg (25-34); MEAN CORPUSCULAR HGB CONC 33 g/dL (32-36); MEAN CORPUSCULAR VOLUME 93 fL (80-99); MEAN PLATELET VOLUME 10.8 fL (9.0-12.2); MONOCYTES # (AUTO) 0.3 10^3/uL (0.0-1.0); MONOCYTES % (AUTO) 3 % (0-12); NEUTROPHILS # (AUTO) 6.3 10^3/uL (1.8-7.8); NEUTROPHILS % (AUTO) 84 % (42-75); PLATELET COUNT 263 10^3/uL (130-400); WHITE BLOOD COUNT 7.5 10^3/uL (4.3-11.0)
[2020-07-01 04:22] LABS: ALANINE AMINOTRANSFERASE 49 U/L (0-55); ALBUMIN 3.4 GM/DL (3.2-4.5); ALKALINE PHOSPHATASE 49 U/L (40-136); BILIRUBIN,DIRECT 0.2 MG/DL (0.0-0.3); BILIRUBIN,INDIRECT 0.1 MG/DL; BILIRUBIN,TOTAL 0.3 MG/DL (0.1-1.0); BUN/CREATININE RATIO 17; CALCIUM 8.8 MG/DL (8.5-10.1); CARBON DIOXIDE 22 MMOL/L (21-32); CHLORIDE 103 MMOL/L (98-107); CREATININE SERUM 0.88 MG/DL (0.60-1.30); GFR ESTIMATED > 60; GLUCOSE 271 MG/DL (70-105); MAGNESIUM 1.8 MG/DL (1.6-2.4); PHOSPHORUS 3.7 MG/DL (2.3-4.7); POTASSIUM 3.7 MMOL/L (3.6-5.0); SODIUM 138 MMOL/L (135-145); TOTAL PROTEIN 6.8 GM/DL (6.4-8.2)
[2020-07-01] MEDS: inSUlin ASPART (NovoLOG) 1 UNIT/0.01 ML (CHARGE PER UNIT) SC SCH ×4 (04:54→17:00)
[2020-07-01] MEDS: morphine INJ 4 MG/ML 1 ML (VIAL/SYRINGE) IVP PRN ×2 (04:54→12:49)
[2020-07-01] MEDS ORDERED: FUROSEMIDE 40 MG/4 ML INJ (LASIX) IVP ONE (05:00)
--- NOTE | 2020-07-01 05:03 | Pulmonary Progress Note ---
Subjective Time Seen by a Provider: 04:58 Subjective/Events-last exam Pt is requiring more oxygen. Sepsis Event Evaluation Height, Weight, BMI Height: 5'6.00" Weight: 270lbs. 0.0oz. 122.978400uf; 43.00 BMI Method:Stated Focused Exam Lactate Level 06/30/20 11:50: Lactic Acid Level 2.10*H 06/30/20 13:59: Lactic Acid Level 1.48 Exam Exam Vital Signs Date Time Temp Pulse Resp B/P (MAP) Pulse Ox O2 Delivery O2 Flow Rate FiO2 07/01/20 04:00 43 26 110/65 (80) 96 Vapotherm 40.00 90.00 07/01/20 03:36 Vapotherm 40.00 90.00 07/01/20 03:34 Vapotherm 40.00 80 07/01/20 03:33 37.6 Vapotherm 40.00 80.00 07/01/20 03:00 97 Vapotherm 40.00 90 07/01/20 03:00 55 32 111/66 (81) 89 Vapotherm 40.00 90.00 07/01/20 02:00 46 33 110/72 (85) 95 Vapotherm 40.00 90.00 07/01/20 01:00 54 30 115/69 (84) 93 Vapotherm 40.00 90.00 07/01/20 01:00 54 07/01/20 00:00 52 33 118/65 (82) 97 Vapotherm 40.00 90.00 06/30/20 23:32 Vapotherm 40.00 90.00 06/30/20 23:26 37.8 56 24 125/84 100 Vapotherm 40.00 100 06/30/20 23:18 Vapotherm 40.00 100 06/30/20 23:17 37.8 Vapotherm 40.00 100.00 06/30/20 23:00 63 35 124/71 (88) 96 Vapotherm 40.00 100.00 06/30/20 22:00 75 36 123/70 (87) 94 Vapotherm 40.00 100.00 06/30/20 21:54 37.6 62 30 115/70 95 Vapotherm 40.00 100 06/30/20 21:54 64 34 115/70 (85) 93 Vapotherm 40.00 100.00 06/30/20 21:45 Vapotherm 40.00 100.00 06/30/20 21:30 Vapotherm 40.00 100 06/30/20 21:24 37.3 79 19 145/112 96 NIV Bilevel 100 06/30/20 21:10 80 93 100.00 06/30/20 21:00 82 132/115 (121) Vapotherm 20.00 100.00 06/30/20 20:00 75 34 112/77 (89) 88 Vapotherm 20.00 100.00 06/30/20 19:51 37.1 06/30/20 19:00 66 131/80 (97) 92 Vapotherm 20.00 100.00 06/30/20 19:00 66 06/30/20 18:00 73 31 116/75 (89) 93 Vapotherm 20.00 100.00 06/30/20 17:00 58 27 106/71 (83) 90 Vapotherm 20.00 100.00 06/30/20 16:32 Vapotherm 20.00 100.00 06/30/20 16:29 97 OxyMask 10.00 06/30/20 16:29 35.0 06/30/20 16:00 58 27 106/71 (83) 90 OxyMask 12.00 06/30/20 16:00 OxyMask 15.00 88 06/30/20 15:54 36.4 06/30/20 15:00 49 28 107/67 (80) 96 OxyMask 12.00 06/30/20 14:22 55 06/30/20 14:15 56 30 103/68 (80) 93 OxyMask 12.00 06/30/20 14:00 37.1 06/30/20 13:32 64 28 134/82 97 10.00 06/30/20 11:30 36.1 82 42 118/68 (85) 95 OxyMask I & O 07/01/20 07:00 Intake Total 1010 ml Output Total 800 ml Balance 210 ml Height & Weight Height: 5'6.00" Weight: 270lbs. 0.0oz. 122.520699xy; 43.00 BMI Method:Stated Capillary Refill: Less Than 3 Seconds Gastrointestinal: normal bowel sounds, non tender, soft Results Lab Laboratory Tests 06/30/20 11:50 07/01/20 02:49 Assessment/Plan Assessment/Plan worsening hypoxia -Check BNP, PCT, DDIMER -Give lasix 40mg x 1 -Repeat CVP x 1 -Increase Decadron to 20mg IV COVID + Pneumonia -Start Remdesivir -Symptom onset was 10 days ago -Daily CMPs -Start Convalescent plasma -Pt understand these are EUA medications and consents to use. -Change oxy mask to Vapotherm -Decadron Elevated LFTs -Monitor Metabolic Lactic acidosis -IVF -Monitor LUBNA DOMINGUEZ DO Jul 01, 2020 05:03
[2020-07-01] MEDS: dexAMETHasone INJECTION 20 MG in NS (IVPB) 50 ML IV SCH (07:49)
[2020-07-01] MEDS: PANTOPRAZOLE 40 MG (PROTONIX) VIAL IV SCH (07:49)
[2020-07-01] MEDS ORDERED: KCL 20 MEQ TAB (K-DUR) PO ONE (09:00)
--- NOTE | 2020-07-01 11:08 | NUR ---
PT C/O NEW ONSET CHEST PAIN. EKG OBTAINED. DR. DOMINGUEZ TO BE NOTIFIED.
[2020-07-01] MEDS: ENOXAPARIN 40 MG/0.4 ML (LOVENOX) SYR SC SCH (11:13)
[2020-07-01] MEDS ORDERED: LIDOCAINE 2% VISCOUS 15 ML UDC PO NR (11:15)
[2020-07-01] MEDS ORDERED: IBUPROFEN 600 MG (MOTRIN) TAB PO PRN (11:15)
[2020-07-01] MEDS ORDERED: ANTACID SUSP 30 ML UDC (MYLANTA) PO NR (11:15)
[2020-07-01] MEDS: REMDESIVIR INJ (NON-FORMULARY) 100 MG in NS (IVPB) 230 ML IV SCH (15:28)
--- NOTE | 2020-07-01 15:50 | NUR ---
TIMELINE NOTE BELOW: 07/01/2020 AT 1512: THIS RN NOTIFIED DR. DOMINGUEZ THAT PT IS BRADYCARDIC WITH HR IN THE LOW 40S. DR. DOMINGUEZ INSTRUCTED THIS RN TO OBTAIN AN EKG AND CONSULT CARDIOLOGY. 07/01/2020 AT 1522: THIS RN PAGED DR. ROMAN. 07/01/2020 AT 1527: DR. ROMAN RESPONDED TO THIS RN'S PAGE. THIS RN INFORMED HIM THAT EARLIER TODAY THE PT HAD COMPLAINED OF NEW ONSET CP, AN EKG WAS OBTAINED AND THAT IT SHOWED SINUS RHYTHM AND PAC'S, AND THAT DR. DOMINGUEZ HAD INSTRUCTED THIS RN TO OBTAIN ANOTHER EKG. NO NEW ORDERS FROM DR. ROMAN AT THIS TIME.
[2020-07-01] MEDS: FLUTICASONE 110 MCG INHALER (FLOVENT) 12 GM INH SCH ×2 (15:53→20:31)
--- NOTE | 2020-07-01 16:26 | NUR ---
ORDERS FROM DR. ROMAN TO START PT ON DOPAMINE 5MCG/KG/MIN AND TO NOT TITRATE THE DOSE.
[2020-07-01] MEDS ORDERED: DOPamine DRIP 250 ML IV ONE (16:27)
[2020-07-01] MEDS: DOPamine DRIP 250 ML IV SCH (16:34)
--- NOTE | 2020-07-01 17:14 | Consultation-Cardiology ---
HPI-Cardiology Cardiology Consultation: Date of Consultation 07/01/20 Time Seen by a Provider: 16:20 Date of Admission Attending Physician Jaylan Solis DO Admitting Physician [facility] Consulting Physician CHICA ROMAN MD, MA, FACP, FACC, [facility] [place], [facility] HPI: Chief Complaint: Reason for consultation: Sinus bradycardia HPI 30 yo woman admitted to ICU for COVID-19 pneumonia on 06/30/[address] Solis. Pt has had bradycardia today after vapotherm and proning. Dr Solis asked us to see her in consult She denies cp at time of my interview. No palp or syncope. Shortness of breath present Gen malaise and weakness Does not report n/v/d Review of Systems-Cardiology Review of Systems Constitutional: malaise, tiredness Eyes: No vision change Ears/Nose/Throat: No ear discharge, No nasal drainage, No recent hearing loss Respiratory: As described under HPI Cardiovascular: As described under HPI Gastrointestinal: As described under HPI Genitourinary: No dysuria, No hematuria Musculoskeletal: No back pain, No joint pain Skin: No rash, No ulcerations Psychiatric/Neurological: No seizure, No focal weakness, No syncope Hematologic: No bleeding abnormalities EGM-Tdeosr-Ipirja Hx Patient Social History Alcohol Use: Denies Use Recreational Drug Use: No Smoking Status: Never a Smoker Recent Foreign Travel: No Recent Infectious Disease Expo: Yes Hospitalization with Isolation: Denies Immunizations Up To Date Tetanus Booster (TDap): Unknown Date of Influenza Vaccine: Jun 17, 2017 Past Medical History PMH As described under Assessment. Family Medical History Family History: Alcoholism PATERNAL UNCLE Alzheimer's disease PATERNAL GRANDMOTHER Arthritis MATERNAL GRANDFATHER PATERNAL GRANDFATHER Completed stroke MATERNAL GRANDFATHER PATERNAL UNCLE Diabetes mellitus PATERNAL GRANDMOTHER PATERNAL GRANDFATHER Hypertension PATERNAL GRANDFATHER Neoplasm PATERNAL GRANDMOTHER (BREAST CANCER) Respiratory disorder MATERNAL GRNADMOTHER (COPD) Allergies and Home Medications Allergies Coded Allergies: No Known Drug Allergies (Unverified , 12/29/12) Home Medications Levothyroxine Sodium 200 Mcg Tablet, 200 MCG PO DAILY, (Reported) Metformin HCl 500 Mg Tablet, 500 MG PO BID, (Reported) Ondansetron 8 Mg Tab.rapdis, 8 MG PO Q6H PRN for NAUSEA/VOMITING Prescribed by: EPIFANIO LARA on 03/04/19 1303 Oxycodone HCl/Acetaminophen 1 Each Tablet, 1-2 TAB PO Q4HR PRN for PAIN-MODERATE TO SEVERE Prescribed by: RITA VIZCARRA on 11/04/17 1026 Sulfamethoxazole/Trimethoprim 1 Each Tablet, 1 EACH PO BID, (Reported) Patient Home Medication List Home Medication List Reviewed: Yes Physical Exam-Cardiology Physical Exam Vital Signs/I&O 07/01/20 07/01/20 07/01/20 07/01/20 06:00 06:36 07:00 08:00 Pulse 44 50 44 52 Resp 28 25 B/P (MAP) 108/58 (75) 109/65 (80) 120/75 (90) Pulse Ox 98 95 93 O2 Delivery Vapotherm Vapotherm Vapotherm O2 Flow Rate 40.00 40.00 40.00 90.00 90.00 90.00 07/01/20 07/01/20 07/01/20 07/01/20 08:01 08:02 08:11 08:53 Temp 36.6 36.9 Pulse 65 Resp 24 B/P (MAP) 120/75 Pulse Ox 91 O2 Delivery Vapotherm Vapotherm Vapotherm O2 Flow Rate 40.00 40.00 40.00 100.00 FiO2 90 100 07/01/20 07/01/20 07/01/20 07/01/20 08:53 09:00 09:08 10:00 Temp 36.9 37.2 37.2 Pulse 56 52 56 49 Resp 24 B/P (MAP) 126/86 (99) 118/74 127/83 (98) Pulse Ox 93 96 94 O2 Delivery Vapotherm Vapotherm Vapotherm O2 Flow Rate 40.00 40.00 40.00 100.00 100.00 FiO2 100 07/01/20 07/01/20 07/01/20 07/01/20 10:05 11:00 11:17 11:18 Temp 37.0 Pulse 45 B/P (MAP) 128/90 (103) Pulse Ox 94 95 O2 Delivery Vapotherm Vapotherm Vapotherm O2 Flow Rate 40.00 40.00 40.00 100.00 FiO2 100 100 07/01/20 07/01/20 07/01/20 07/01/20 11:19 11:20 12:00 12:38 Temp 37.0 37.0 Pulse 45 47 Resp 24 B/P (MAP) 128/90 131/79 (96) Pulse Ox 95 95 91 O2 Delivery Vapotherm Vapotherm Vapotherm O2 Flow Rate 40.00 40.00 40.00 100.00 FiO2 100 100 07/01/20 07/01/20 07/01/20 07/01/20 12:43 13:00 14:00 15:00 Pulse 58 50 42 45 B/P (MAP) 104/70 (81) 106/66 (79) 103/63 (76) Pulse Ox 94 97 100 O2 Delivery Vapotherm Vapotherm Vapotherm O2 Flow Rate 40.00 40.00 40.00 100.00 100.00 100.00 07/01/20 07/01/20 07/01/20 07/01/20 15:53 16:00 16:34 16:51 Temp 36.2 Pulse 41 41 B/P (MAP) 122/62 (82) 122/62 Pulse Ox 98 99 O2 Delivery Vapotherm Vapotherm O2 Flow Rate 40.00 40.00 100.00 FiO2 100 07/01/20 17:00 Pulse 49 B/P (MAP) 114/69 (84) Pulse Ox 92 O2 Delivery Vapotherm O2 Flow Rate 40.00 100.00 07/01/20 00:00 Intake Total 970 ml Output Total 680 ml Balance 290 ml Capillary Refill : Less Than 3 Seconds Constitutional: AAO x 3, well-developed, well-nourished HEENT: EOMI, hearing is well preserved; No xanthelasmas are seen Neck: carotid pulses are 2 + bilaterally, with good upstrokes Respiratory: No accessory muscle use; other (good bilat air entry) Cardiovascular: regular rate-rhythm, S1 and S2 Gastrointestinal: No tender; audible bowel sounds Extremities: No clubbing, No cyanosis, No significant edema Neurologic/Psychiatric: oriented x 3, other (moves all limbs equally) Skin: No rash on exposed areas, No ulcerations on exposed areas Data Review Labs Laboratory Tests 06/30/20 23:15: Glucometer 297H 07/01/20 02:45: D-Dimer 1.39H, B-Type Natriuretic Peptide 68.1 07/01/20 02:49: White Blood Count 7.5, Red Blood Count 4.01, Hemoglobin 12.4, Hematocrit 37, Mean Corpuscular Volume 93, Mean Corpuscular Hemoglobin 31, Mean Corpuscular Hemoglobin Concent 33, Red Cell Distribution Width 11.5, Platelet Count 263, Mean Platelet Volume 10.8, Immature Granulocyte % (Auto) 1, Neutrophils (%) (Auto) 84H, Lymphocytes (%) (Auto) 12, Monocytes (%) (Auto) 3, Eosinophils (%) (Auto) 0, Basophils (%) (Auto) 0, Neutrophils # (Auto) 6.3, Lymphocytes # (Auto) 0.9L, Monocytes # (Auto) 0.3, Eosinophils # (Auto) 0.0, Basophils # (Auto) 0.0, Immature Granulocyte # (Auto) 0.1, Sodium Level 138, Potassium Level 3.7, Chloride Level 103, Carbon Dioxide Level 22, Anion Gap 13, Blood Urea Nitrogen 15, Creatinine 0.88, Estimat Glomerular Filtration Rate > 60, BUN/Creatinine Ratio 17, Glucose Level 271H, Calcium Level 8.8, Phosphorus Level 3.7, Magnesium Level 1.8, Total Bilirubin 0.3, Direct Bilirubin 0.2, Indirect Bilirubin 0.1, Aspartate Amino Transf (AST/SGOT) 29, Alanine Aminotransferase (ALT/SGPT) 49, Alkaline Phosphatase 49, Total Protein 6.8, Albumin 3.4, Procalcitonin 0.11H 07/01/20 11:07: Glucometer 360H 07/01/20 11:35: Troponin I < 0.028 07/01/20 16:55: Glucometer 321H 07/01/20 17:00: Microbiology 06/30/20 MRSA Screen - Final, Complete MRSA not isolated Laboratory Tests 06/30/20 11:50 07/01/20 02:49 A/P-Cardiology Assessment/Admission Diagnosis COVID-19 pneumonia and ac resp failure treated with vapotherm and proning Metabolic acidosis Sinus vane likely due to above DM II Discussion and Recomendations Low dose dopamine to support heart rate Avoid rate-lowering meds and vagal maneuvers as far as possible Monitor labs Clinical Quality Measures DVT/VTE Risk/Contraindication: Risk Factor Score Per Nursin RFS Level Per Nursing on Admit: 2=Moderate CHICA ROMAN MD FACP [employer] Jul 01, 2020 17:14
--- NOTE | 2020-07-01 17:36 | NUR ---
THIS RN CONTACTED DR. ROMAN TO NOTIFY HIM OF PT HEART RATE OF 39. DR. ROMAN STATED IT IS FINE AND REITERATED NOT TO TITRATE THE DOPAMINE. HE ASKED THIS RN TO CHECK WITH PHARMACY TO SEE IF ISOPROTERENOL IS KEPT IN HOUSE.
--- NOTE | 2020-07-01 18:23 | NUR ---
THIS RN CONTACTED DR. ROMAN TO INFORM HIM THAT THE PHARMACIST REPORTED THAT ISOPROTERENOL IS NOT KEPT IN HOUSE. THIS RN ALSO NOTIFIED HIM THAT PT'S CURRENT HEART RATE IS 38. ORDERS TO TITRATE DOPAMINE TO 10MCG/KG/MIN GIVEN BY DR. ROMAN.
[2020-07-01] MEDS: LORazepam INJ 2 MG/ML (ATIVAN) VIAL IVP PRN (19:00)
--- NOTE | 2020-07-01 21:00 | NUR ---
Dr. Saha called and informed this RN that dopamine drip could be titrated to keep patient's heart rate above 40 up to 12mcg/kg/min if blood pressure tolerates.
[2020-07-02] VITALS (27 sets, daily range): BP systolic 96–187; BP diastolic 57–104
[2020-07-02] MEDS: ENOXAPARIN 40 MG/0.4 ML (LOVENOX) SYR SC SCH ×3 (00:33→23:05)
[2020-07-02] MEDS: inSUlin ASPART (NovoLOG) 1 UNIT/0.01 ML (CHARGE PER UNIT) SC SCH ×6 (00:35→23:06)
[2020-07-02] MEDS: morphine INJ 4 MG/ML 1 ML (VIAL/SYRINGE) IVP PRN ×2 (00:42→23:06)
[2020-07-02] MEDS ORDERED: inSUlin (REGULAR) HUMAN 1 UNIT/0.01 ML (CHARGE PER UNIT) SC ONE (01:00)
[2020-07-02 01:36] LABS: BASOPHILS % (AUTO) 0 % (0-10); EOSINOPHILS % (AUTO) 0 % (0-10); HEMATOCRIT 44 % (35-52); HEMOGLOBIN 14.8 g/dL (11.5-16.0); LYMPHOCYTES # (AUTO) 1.2 10^3/uL (1.0-4.0); LYMPHOCYTES % (AUTO) 10 % (12-44); MEAN CORPUSCULAR HEMOGLOBIN 31 pg (25-34); MEAN CORPUSCULAR HGB CONC 34 g/dL (32-36); MEAN CORPUSCULAR VOLUME 92 fL (80-99); MEAN PLATELET VOLUME 10.3 fL (9.0-12.2); MONOCYTES # (AUTO) 0.5 10^3/uL (0.0-1.0); MONOCYTES % (AUTO) 5 % (0-12); NEUTROPHILS # (AUTO) 9.9 10^3/uL (1.8-7.8); NEUTROPHILS % (AUTO) 84 % (42-75); PLATELET COUNT 361 10^3/uL (130-400); WHITE BLOOD COUNT 11.8 10^3/uL (4.3-11.0)
[2020-07-02 01:48] LABS: CHLORIDE 102 MMOL/L (98-107); POTASSIUM 4.5 MMOL/L (3.6-5.0); SODIUM 138 MMOL/L (135-145)
[2020-07-02 01:49] LABS: CALCIUM 8.9 MG/DL (8.5-10.1)
[2020-07-02 01:51] LABS: CARBON DIOXIDE 21 MMOL/L (21-32)
[2020-07-02 01:53] LABS: PHOSPHORUS 2.9 MG/DL (2.3-4.7)
[2020-07-02 01:54] LABS: CREATININE SERUM 0.92 MG/DL (0.60-1.30); GFR ESTIMATED > 60
[2020-07-02 01:55] LABS: BUN/CREATININE RATIO 23
[2020-07-02 01:56] LABS: MAGNESIUM 2.4 MG/DL (1.6-2.4)
[2020-07-02 02:25] LABS: GLUCOSE 437 MG/DL (70-105)
[2020-07-02] MEDS: RT-ALBUTEROL INHALER HFA (VENTOLIN HFA) 18 GM IH SCH ×4 (02:49→19:07)
--- NOTE | 2020-07-02 03:50 | Pulmonary Progress Note ---
Subjective Time Seen by a Provider: 03:44 Sepsis Event Evaluation Height, Weight, BMI Height: 5'6.00" Weight: 270lbs. 0.0oz. 122.625081pp; 43.00 BMI Method:Stated Focused Exam Lactate Level 06/30/20 11:50: Lactic Acid Level 2.10*H 06/30/20 13:59: Lactic Acid Level 1.48 Exam Exam Vital Signs Date Time Temp Pulse Resp B/P (MAP) Pulse Ox O2 Delivery O2 Flow Rate FiO2 07/02/20 02:50 94 Vapotherm 40.00 85 07/02/20 01:00 40 07/02/20 00:36 36.1 43 137/86 (103) 93 Vapotherm 40.00 85.00 07/01/20 23:00 41 133/76 (95) 94 Vapotherm 40.00 90.00 07/01/20 22:20 99 Vapotherm 40.00 90 07/01/20 22:17 99 Vapotherm 40.00 90 07/01/20 22:00 40 120/72 (88) 98 Vapotherm 40.00 90.00 07/01/20 21:00 95 Vapotherm 40.00 90 07/01/20 21:00 65 127/80 (96) 96 Vapotherm 40.00 90.00 07/01/20 20:11 36.0 46 20 131/71 (91) 95 Vapotherm 40.00 90.00 07/01/20 20:00 46 130/78 (95) 96 Vapotherm 40.00 100.00 07/01/20 19:00 58 124/93 (103) 96 Vapotherm 40.00 100.00 07/01/20 19:00 61 07/01/20 18:58 67 177/93 07/01/20 18:28 38 115/69 07/01/20 18:00 38 120/69 (86) 96 Vapotherm 40.00 100.00 07/01/20 17:00 49 114/69 (84) 92 Vapotherm 40.00 100.00 07/01/20 16:51 36.2 07/01/20 16:34 41 122/62 07/01/20 16:00 41 122/62 (82) 99 Vapotherm 40.00 100.00 07/01/20 15:53 98 Vapotherm 40.00 100 07/01/20 15:00 45 103/63 (76) 100 Vapotherm 40.00 100.00 07/01/20 14:00 42 106/66 (79) 97 Vapotherm 40.00 100.00 07/01/20 13:00 50 104/70 (81) 94 Vapotherm 40.00 100.00 07/01/20 12:43 58 07/01/20 12:38 91 Vapotherm 40.00 100 07/01/20 12:00 47 131/79 (96) 95 Vapotherm 40.00 100.00 07/01/20 11:20 37.0 07/01/20 11:19 37.0 45 24 128/90 95 Vapotherm 40.00 100 07/01/20 11:18 37.0 07/01/20 11:17 Vapotherm 40.00 100 07/01/20 11:00 45 128/90 (103) 95 Vapotherm 40.00 100.00 07/01/20 10:05 94 Vapotherm 40.00 100 07/01/20 10:00 49 127/83 (98) 94 Vapotherm 40.00 100.00 07/01/20 09:08 37.2 56 24 118/74 96 Vapotherm 40.00 100 07/01/20 09:00 52 126/86 (99) 93 Vapotherm 40.00 100.00 07/01/20 08:53 36.9 56 37.2 07/01/20 08:53 36.9 65 24 120/75 91 Vapotherm 40.00 100 07/01/20 08:11 Vapotherm 40.00 100.00 07/01/20 08:02 Vapotherm 40.00 90 07/01/20 08:01 36.6 07/01/20 08:00 52 120/75 (90) 93 Vapotherm 40.00 90.00 07/01/20 07:00 44 25 109/65 (80) 95 Vapotherm 40.00 90.00 07/01/20 06:36 50 07/01/20 06:00 44 28 108/58 (75) 98 Vapotherm 40.00 90.00 07/01/20 05:00 47 27 106/61 (76) 99 Vapotherm 40.00 90.00 07/01/20 04:00 43 26 110/65 (80) 96 Vapotherm 40.00 90.00 I & O 07/02/20 07:00 Intake Total 1427 ml Output Total 1620 ml Balance -193 ml Height & Weight Height: 5'6.00" Weight: 270lbs. 0.0oz. 122.175081vm; 43.00 BMI Method:Stated Capillary Refill: Less Than 3 Seconds Gastrointestinal: normal bowel sounds, non tender, soft Results Lab Laboratory Tests 06/30/20 11:50 07/01/20 02:49 07/02/20 01:18 Assessment/Plan Assessment/Plan worsening hypoxia -Check BNP, PCT, DDIMER -Give lasix 40mg x 1 -Repeat CVP x 1 -Increase Decadron to 20mg IV COVID + Pneumonia -Start Remdesivir -Symptom onset was 10 days ago -Daily CMPs -S/p 2 units of Convalescent plasma -Pt understand these are EUA medications and consents to use. - Vapotherm -Decadron - currently 20mg Bradycardia -- BP is normal -Cardiology following -Pt is currently on Dopamine uncontrolled NIDDM -Start Levemir Elevated LFTs -Monitor LUBNA DOMINGUEZ DO Jul 02, 2020 03:50
[2020-07-02 04:13] LABS: ALBUMIN 3.8 GM/DL (3.2-4.5); CHLORIDE 103 MMOL/L (98-107); POTASSIUM 4.6 MMOL/L (3.6-5.0); SODIUM 139 MMOL/L (135-145)
[2020-07-02 04:15] LABS: CALCIUM 8.9 MG/DL (8.5-10.1)
[2020-07-02 04:16] LABS: TOTAL PROTEIN 7.6 GM/DL (6.4-8.2)
[2020-07-02 04:17] LABS: CARBON DIOXIDE 19 MMOL/L (21-32)
[2020-07-02 04:18] LABS: BILIRUBIN,TOTAL 0.5 MG/DL (0.1-1.0)
[2020-07-02 04:19] LABS: ALKALINE PHOSPHATASE 56 U/L (40-136); CREATININE SERUM 0.95 MG/DL (0.60-1.30); GFR ESTIMATED > 60
[2020-07-02 04:20] LABS: BUN/CREATININE RATIO 23
[2020-07-02 04:22] LABS: ALANINE AMINOTRANSFERASE 44 U/L (0-55)
[2020-07-02 04:34] LABS: GLUCOSE 442 MG/DL (70-105)
[2020-07-02] MEDS: FLUTICASONE 110 MCG INHALER (FLOVENT) 12 GM INH SCH ×2 (09:43→19:07)
[2020-07-02] MEDS ORDERED: CLOPIDOGREL 75 MG (PLAVIX) TABLET PO NR (09:45)
[2020-07-02] MEDS: ASPIRIN 81 MG CHEW (CHILDREN'S ASA) PO SCH (09:52)
[2020-07-02] MEDS: PANTOPRAZOLE 40 MG (PROTONIX) VIAL IV SCH (09:52)
[2020-07-02] MEDS: DOBUTamine DRIP 250 ML IV SCH ×2 (09:54→23:27)
[2020-07-02] MEDS: dexAMETHasone INJECTION 20 MG in NS (IVPB) 50 ML IV SCH (09:55)
--- NOTE | 2020-07-02 10:49 | Progress Note - Cardiology ---
Cardiology SOAP Progress Note Subjective: No cp or palp or syncope No shortness of breath rest Gen malaise and weakness No n/v/d Objective: I&O/Vital Signs 07/01/20 07/02/20 07/02/20 07/02/20 23:00 00:00 00:36 01:00 Temp 36.1 Pulse 41 41 43 40 B/P (MAP) 133/76 (95) 133/77 (95) 137/86 (103) 129/79 (96) Pulse Ox 94 93 93 95 O2 Delivery Vapotherm Vapotherm Vapotherm Vapotherm O2 Flow Rate 40.00 40.00 40.00 40.00 90.00 90.00 85.00 85.00 07/02/20 07/02/20 07/02/20 07/02/20 01:00 01:30 02:00 02:50 Pulse 40 46 43 B/P (MAP) 172/98 128/84 (99) Pulse Ox 95 94 O2 Delivery Vapotherm Vapotherm O2 Flow Rate 40.00 40.00 85.00 FiO2 85 07/02/20 07/02/20 07/02/20 07/02/20 03:00 03:45 04:00 04:23 Temp 35.7 Pulse 43 42 82 B/P (MAP) 129/84 (99) 126/82 (97) 102/68 Pulse Ox 95 94 O2 Delivery Vapotherm Vapotherm O2 Flow Rate 40.00 40.00 85.00 85.00 07/02/20 07/02/20 07/02/20 07/02/20 04:50 05:00 06:00 07:00 Pulse 68 70 80 Resp 23 23 B/P (MAP) 106/72 (83) 113/79 (90) 144/83 (103) Pulse Ox 93 93 84 O2 Delivery Vapotherm Vapotherm Vapotherm Vapotherm O2 Flow Rate 40.00 40.00 40.00 40.00 90.00 90.00 90.00 90.00 07/02/20 07/02/20 07/02/20 07/02/20 07:30 08:19 09:00 09:44 Temp 36.4 Pulse 72 49 39 Resp 22 B/P (MAP) 180/87 (118) 96/60 (72) Pulse Ox 99 97 96 O2 Delivery Vapotherm Vapotherm Vapotherm O2 Flow Rate 40.00 40.00 40.00 90.00 90.00 FiO2 90 07/02/20 07/02/20 09:54 10:00 Pulse 42 40 B/P (MAP) 94/53 100/57 (71) Pulse Ox 97 O2 Delivery Vapotherm O2 Flow Rate 40.00 90.00 07/02/20 00:00 Intake Total 850 ml Output Total 720 ml Balance 130 ml Weight (Pounds): 270 Weight (Ounces): 0.0 Weight (Calculated Kilograms): 122.574831 Constitutional: AAO x 3, well-developed, well-nourished Respiratory: No accessory muscle use; other (good bilat air entry) Cardiovascular: regular rate-rhythm, S1 and S2 Gastrointestional: No tender; audible bowel sounds Extremities: No clubbing, No cyanosis, No significant edema Neurologic/Psychiatric: oriented x 3, other (moves all limbs equally) Skin: No rash on exposed areas, No ulcerations on exposed areas Results/Procedures: Labs Laboratory Tests 07/01/20 11:07: Glucometer 360H 07/01/20 11:35: Troponin I < 0.028 07/01/20 16:55: Glucometer 321H 07/01/20 17:00: Troponin I < 0.028 07/02/20 00:30: Glucometer 401*H 07/02/20 01:18: White Blood Count 11.8H, Red Blood Count 4.81, Hemoglobin 14.8, Hematocrit 44, Mean Corpuscular Volume 92, Mean Corpuscular Hemoglobin 31, Mean Corpuscular Hemoglobin Concent 34, Red Cell Distribution Width 11.4, Platelet Count 361, Mean Platelet Volume 10.3, Immature Granulocyte % (Auto) 1, Neutrophils (%) (Auto) 84H, Lymphocytes (%) (Auto) 10L, Monocytes (%) (Auto) 5, Eosinophils (%) (Auto) 0, Basophils (%) (Auto) 0, Neutrophils # (Auto) 9.9H, Lymphocytes # (Auto) 1.2, Monocytes # (Auto) 0.5, Eosinophils # (Auto) 0.0, Basophils # (Auto) 0.0, Immature Granulocyte # (Auto) 0.2H, Sodium Level 139, Potassium Level 4.6, Chloride Level 103, Carbon Dioxide Level 19L, Anion Gap 17H, Blood Urea Nitrogen 22H, Creatinine 0.95, Estimat Glomerular Filtration Rate > 60, BUN/Creatinine Ratio 23, Glucose Level 442*H, Calcium Level 8.9, Corrected Calcium 9.1, Phosphorus Level 2.9, Magnesium Level 2.4, Total Bilirubin 0.5, Aspartate Amino Transf (AST/SGOT) 25, Alanine Aminotransferase (ALT/SGPT) 44, Alkaline Phosphatase 56, Troponin I 0.126H, Total Protein 7.6, Albumin 3.8 07/02/20 02:53: Glucometer 363H 07/02/20 06:03: Glucometer 353H Microbiology 06/30/20 MRSA Screen - Final, Complete MRSA not isolated 06/30/20 Blood Culture - Preliminary, Resulted No growth Laboratory Tests 06/30/20 11:50 07/01/20 02:49 07/02/20 01:18 A/P: Assessment: COVID-19 pneumonia and ac resp failure treated with vapotherm and proning Mild troponin elevation, likely type 2 [place] due to transient hypoxemia (had presented with oxygen sat in the 60s) Metabolic acidosis Sinus vane likely due to above DM II Plan: Low dose dopamine to support heart rate affected the heart rate minimally and raised bp considerably. We are now trying dobutamine and have also requested pharmacy to try and obtain isoproterenol for use, if needed Avoid rate-lowering meds and vagal maneuvers as far as possible Monitor labs CHICA ROMAN MD FACP [facility] CCDS Jul 02, 2020 10:49
[2020-07-02] MEDS ORDERED: GUAI400T85 PO (10:55)
[2020-07-02] MEDS ORDERED: ACET250T3 PO (10:55)
--- NOTE | 2020-07-02 10:56 | NUR ---
UNABLE TO SPEAK WITH THE PT AT THIS TIME- I DID CALL [facility] AND HAD A MED LIST SENT OVER AND ALSO [facility] 03-13-2020 METFORMIN 500MG #180/90DS 03-13-2020 LEVOTHYROXINE 200MCG #90/90DS 06-27-2020 MUCUS RELIEF 400MG #60 WHEN I AM ABLE TO SPEAK WITH THE PT I WILL UPDATE THE MED REC/NOTES NEEDED
--- NOTE | 2020-07-02 15:21 | NUR ---
During care rounds it was discussed that pt's avg PO intake was <25% of meals, per chart review. Will place order for Glucerna to be added to meals TID, for increased kcal intake. Provides 220 kcal and 10 g Pro per serving. Will continue to follow and reassess as pt needs, intake, and status change. Favio Rabago MS RD LD [phone] (cell)
[2020-07-02] MEDS: DOPamine DRIP 250 ML IV SCH (16:53)
[2020-07-02] MEDS: REMDESIVIR INJ (NON-FORMULARY) 100 MG in NS (IVPB) 230 ML IV SCH (17:03)
[2020-07-03] VITALS (24 sets, daily range): BP systolic 87–155; BP diastolic 53–97
[2020-07-03] MEDS: RT-ALBUTEROL INHALER HFA (VENTOLIN HFA) 18 GM IH SCH ×4 (02:17→22:02)
[2020-07-03 04:01] LABS: BASOPHILS % (AUTO) 0 % (0-10); EOSINOPHILS % (AUTO) 0 % (0-10); HEMATOCRIT 41 % (35-52); HEMOGLOBIN 13.8 g/dL (11.5-16.0); LYMPHOCYTES # (AUTO) 1.1 10^3/uL (1.0-4.0); LYMPHOCYTES % (AUTO) 12 % (12-44); MEAN CORPUSCULAR HEMOGLOBIN 31 pg (25-34); MEAN CORPUSCULAR HGB CONC 34 g/dL (32-36); MEAN CORPUSCULAR VOLUME 91 fL (80-99); MEAN PLATELET VOLUME 10.3 fL (9.0-12.2); MONOCYTES # (AUTO) 0.5 10^3/uL (0.0-1.0); MONOCYTES % (AUTO) 6 % (0-12); NEUTROPHILS # (AUTO) 7.9 10^3/uL (1.8-7.8); NEUTROPHILS % (AUTO) 81 % (42-75); PLATELET COUNT 373 10^3/uL (130-400); WHITE BLOOD COUNT 9.7 10^3/uL (4.3-11.0)
[2020-07-03 04:10] LABS: CHLORIDE 101 MMOL/L (98-107); POTASSIUM 4.4 MMOL/L (3.6-5.0); SODIUM 138 MMOL/L (135-145)
[2020-07-03 04:11] LABS: CALCIUM 8.3 MG/DL (8.5-10.1)
[2020-07-03 04:12] LABS: GLUCOSE 338 MG/DL (70-105)
[2020-07-03 04:13] LABS: CARBON DIOXIDE 26 MMOL/L (21-32)
[2020-07-03 04:15] LABS: PHOSPHORUS 2.5 MG/DL (2.3-4.7)
[2020-07-03 04:16] LABS: CREATININE SERUM 0.91 MG/DL (0.60-1.30); GFR ESTIMATED > 60
[2020-07-03 04:17] LABS: BUN/CREATININE RATIO 21
[2020-07-03 04:18] LABS: MAGNESIUM 2.4 MG/DL (1.6-2.4)
[2020-07-03] MEDS: inSUlin ASPART (NovoLOG) 1 UNIT/0.01 ML (CHARGE PER UNIT) SC SCH ×4 (06:03→22:50)
[2020-07-03] MEDS: ACETAMINOPHEN 325 MG TABLET PO PRN ×2 (06:05→18:11)
[2020-07-03] MEDS ORDERED: FUROSEMIDE 40 MG/4 ML INJ (LASIX) IVP ONE (06:30)
--- NOTE | 2020-07-03 06:34 | Pulmonary Progress Note ---
Subjective Time Seen by a Provider: 06:28 Sepsis Event Evaluation Height, Weight, BMI Height: 5'6.00" Weight: 270lbs. 0.0oz. 122.858102zq; 43.00 BMI Method:Stated Focused Exam Lactate Level 06/30/20 11:50: Lactic Acid Level 2.10*H 06/30/20 13:59: Lactic Acid Level 1.48 Exam Exam Vital Signs Date Time Temp Pulse Resp B/P (MAP) Pulse Ox O2 Delivery O2 Flow Rate FiO2 07/03/20 04:00 52 23 140/74 (96) 98 Vapotherm 25.00 50.00 07/03/20 04:00 37.3 07/03/20 03:00 49 24 129/75 (93) 96 Vapotherm 25.00 50.00 07/03/20 02:17 95 Vapotherm 25.00 50 07/03/20 02:00 50 27 145/89 (107) 96 Vapotherm 25.00 50.00 07/03/20 01:00 60 07/03/20 01:00 55 30 155/86 (109) 96 Vapotherm 25.00 50.00 07/03/20 00:15 Vapotherm 25.00 50.00 07/03/20 00:14 Vapotherm 25.00 50.00 07/03/20 00:00 56 28 127/82 (97) 95 Vapotherm 30.00 60.00 07/03/20 00:00 36.0 07/02/20 23:53 100 Vapotherm 30.00 65 07/02/20 23:27 40 121/70 (87) 98 Vapotherm 30.00 60.00 07/02/20 23:27 37 121/70 07/02/20 23:04 36.2 07/02/20 23:00 51 28 121/70 (87) 96 Vapotherm 30.00 80.00 07/02/20 22:00 65 26 109/73 (85) 93 Vapotherm 30.00 80.00 07/02/20 21:00 91 Vapotherm 30.00 80 07/02/20 21:00 58 28 122/82 (95) 92 Vapotherm 30.00 80.00 07/02/20 20:41 91 30.00 80.00 07/02/20 20:41 89 30.00 75.00 07/02/20 20:34 36.3 47 21 107/71 (83) 98 Vapotherm 30.00 75.00 07/02/20 20:00 47 123/82 (96) 98 Vapotherm 40.00 90.00 07/02/20 19:11 99 Vapotherm 30.00 75 07/02/20 19:07 100 Vapotherm 40.00 85 07/02/20 19:00 40 07/02/20 19:00 71 124/77 (93) 99 Vapotherm 40.00 90.00 07/02/20 18:00 70 30 121/75 (90) 100 Vapotherm 40.00 90.00 07/02/20 17:01 36.8 07/02/20 17:00 115 32 187/104 (131) 95 Vapotherm 40.00 90.00 07/02/20 16:00 44 54 158/88 (111) 98 Vapotherm 40.00 90.00 07/02/20 15:00 46 25 110/68 (82) 92 Vapotherm 40.00 90.00 07/02/20 14:05 93 Vapotherm 40.00 90 07/02/20 14:00 45 26 112/67 (82) 95 Vapotherm 40.00 90.00 07/02/20 13:15 91 07/02/20 13:00 75 139/81 (100) 99 Vapotherm 40.00 90.00 07/02/20 12:00 73 143/82 (102) 100 Vapotherm 40.00 90.00 07/02/20 11:45 35.8 07/02/20 11:00 56 124/63 (83) 99 Vapotherm 40.00 90.00 07/02/20 10:00 40 100/57 (71) 97 Vapotherm 40.00 90.00 07/02/20 09:54 42 94/53 07/02/20 09:44 96 Vapotherm 40.00 90 07/02/20 09:00 39 96/60 (72) 97 Vapotherm 40.00 90.00 07/02/20 09:00 95 Vapotherm 40.00 90 07/02/20 08:19 36.4 49 22 180/87 (118) 99 Vapotherm 40.00 90.00 07/02/20 07:30 72 07/02/20 07:00 80 23 144/83 (103) 84 Vapotherm 40.00 90.00 I & O 07/03/20 07:00 Intake Total 1655 ml Output Total 1525 ml Balance 130 ml Height & Weight Height: 5'6.00" Weight: 270lbs. 0.0oz. 122.158473ww; 43.00 BMI Method:Stated Capillary Refill: Less Than 3 Seconds Gastrointestinal: normal bowel sounds, non tender, soft Results Lab Laboratory Tests 07/02/20 01:18 07/03/20 03:48 Assessment/Plan Assessment/Plan worsening hypoxia -Give lasix 40mg x 1 - s/p CVP x2 - Decadron decreased to 6mg IV COVID + Pneumonia -Remdesivir -Symptom onset was 10 days ago -Daily CMPs -S/p 2 units of Convalescent plasma -Pt understand these are EUA medications and consents to use. 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 -Will restart acetazolamide. Bradycardia -- BP is normal -Cardiology following -Pt is currently on Dopamine uncontrolled NIDDM -Start Levemir Elevated LFTs -Monitor LUBNA DOMINGUEZ DO Jul 03, 2020 06:34
[2020-07-03] MEDS: ASPIRIN 81 MG CHEW (CHILDREN'S ASA) PO SCH (08:11)
[2020-07-03] MEDS: CLOPIDOGREL 75 MG (PLAVIX) TABLET PO SCH (08:11)
[2020-07-03] MEDS: LEVOTHYROXINE 100 MCG (LEVOTHROID) TAB PO SCH (08:12)
[2020-07-03] MEDS: PANTOPRAZOLE 40 MG (PROTONIX) VIAL IV SCH (08:12)
[2020-07-03] MEDS: acetaZOLAMIDE 250 MG (DIAMOX) TAB PO SCH ×2 (08:12→19:52)
--- NOTE | 2020-07-03 10:00 | Progress Note - Cardiology ---
Cardiology SOAP Progress Note Subjective: Lying prone this morning. States chest discomfort with deep breathing. Continues to feel SOB which is worse with any exertion. No c/o palpitations. Frequent lose cough. Objective: I&O/Vital Signs 07/03/20 07/03/20 07/03/20 07/03/20 05:00 06:00 07:00 07:00 Pulse 42 43 48 43 Resp 28 28 27 B/P (MAP) 155/97 (116) 135/75 (95) 143/86 (105) Pulse Ox 97 97 92 O2 Delivery Vapotherm Vapotherm Vapotherm O2 Flow Rate 25.00 25.00 25.00 50.00 50.00 50.00 07/03/20 07/03/20 07/03/20 07/03/20 07:28 08:00 09:00 09:00 Temp 36.8 Pulse 45 52 Resp 27 20 B/P (MAP) 128/80 (96) 131/80 (97) Pulse Ox 96 96 89 O2 Delivery Vapotherm Vapotherm Vapotherm O2 Flow Rate 25.00 30.00 25.00 50.00 50.00 FiO2 80 07/03/20 07/03/20 07/03/20 07/03/20 10:00 11:00 12:00 12:41 Pulse 96 84 75 67 Resp 23 23 14 B/P (MAP) 111/77 (88) 102/58 (73) 109/66 (80) Pulse Ox 95 100 99 O2 Delivery Vapotherm Vapotherm Vapotherm O2 Flow Rate 25.00 25.00 25.00 50.00 50.00 50.00 07/03/20 07/03/20 07/03/20 07/03/20 13:00 14:00 15:00 15:01 Pulse 58 48 40 Resp 27 25 21 B/P (MAP) 106/64 (78) 101/71 (81) 114/63 (80) Pulse Ox 100 98 100 100 O2 Delivery Vapotherm Vapotherm Vapotherm Vapotherm O2 Flow Rate 25.00 25.00 25.00 25.00 50.00 50.00 50.00 FiO2 50 07/03/20 07/03/20 16:00 16:00 Temp 36.6 Pulse 52 Resp 21 B/P (MAP) 115/67 (83) Pulse Ox 100 O2 Delivery Vapotherm O2 Flow Rate 25.00 50.00 07/03/20 00:00 Intake Total 980 ml Output Total 825 ml Balance 155 ml Weight (Pounds): 270 Weight (Ounces): 0.0 Weight (Calculated Kilograms): 122.509031 Constitutional: AAO x 3, well-developed, well-nourished Respiratory: No accessory muscle use; other (good bilat air entry) Cardiovascular: regular rate-rhythm, S1 and S2 Gastrointestional: No tender; audible bowel sounds Extremities: No clubbing, No cyanosis, No significant edema Neurologic/Psychiatric: oriented x 3, other (moves all limbs equally) Skin: No rash on exposed areas, No ulcerations on exposed areas Results/Procedures: Labs Laboratory Tests 07/02/20 18:06: Glucometer 403*H 07/02/20 23:01: Glucometer 397H 07/03/20 03:48: White Blood Count 9.7, Red Blood Count 4.51, Hemoglobin 13.8, Hematocrit 41, Mean Corpuscular Volume 91, Mean Corpuscular Hemoglobin 31, Mean Corpuscular Hemoglobin Concent 34, Red Cell Distribution Width 11.1, Platelet Count 373, Mean Platelet Volume 10.3, Immature Granulocyte % (Auto) 2, Neutrophils (%) (Auto) 81H, Lymphocytes (%) (Auto) 12, Monocytes (%) (Auto) 6, Eosinophils (%) (Auto) 0, Basophils (%) (Auto) 0, Neutrophils # (Auto) 7.9H, Lymphocytes # (Auto) 1.1, Monocytes # (Auto) 0.5, Eosinophils # (Auto) 0.0, Basophils # (Auto) 0.0, Immature Granulocyte # (Auto) 0.2H, Sodium Level 138, Potassium Level 4.4, Chloride Level 101, Carbon Dioxide Level 26, Anion Gap 11, Blood Urea Nitrogen 19H, Creatinine 0.91, Estimat Glomerular Filtration Rate > 60, BUN/Creatinine Ratio 21, Glucose Level 338H, Calcium Level 8.3L, Phosphorus Level 2.5, Magnesium Level 2.4 07/03/20 09:25: Urine Color YELLOW, Urine Clarity CLEAR, Urine pH 5.5, Urine Specific [place] 1.010L, Urine Protein NEGATIVE, Urine Glucose (UA) 1+H, Urine Ketones NEGATIVE, Urine Nitrite POSITIVEH, Urine Bilirubin NEGATIVE, Urine Urobilinogen 0.2, Urine Leukocyte Esterase NEGATIVE, Urine RBC (Auto) NEGATIVE, Urine RBC NONE, Urine WBC 0-2, Urine Squamous Epithelial Cells RARE, Urine Crystals NONE, Urine Bacteria MODERATEH, Urine Casts NONE, Urine Mucus SMALLH, Urine Culture Indicated YES 07/03/20 11:55: Glucometer 305H Microbiology 06/30/20 MRSA Screen - Final, Complete MRSA not isolated 06/30/20 Blood Culture - Preliminary, Resulted No growth Laboratory Tests 07/02/20 01:18 07/03/20 03:48 A/P: Assessment: COVID-19 pneumonia and ac resp failure treated with vapotherm and proning and high-dose steroid Sinus vane likely due to above, especially high-dose steroid Mild troponin elevation, likely type 2 [place] due to transient hypoxemia (had pr esented with oxygen sat in the 60s) DM II Plan: Consider reducing steroids when clinically feasible. This will likely improve heart rate Avoid rate-lowering meds and vagal maneuvers as far as possible Monitor labs Physician Assessment Physician Assessment The above note documents the mutual evaluation of the patient by Jose Fisher APRN, and nv I have updated the note in italics WARREN FISHER Jul 03, 2020 10:00 CHICA ROMAN MD [facility] CCDS Jul 03, 2020 16:49
[2020-07-03] MEDS: FLUTICASONE 110 MCG INHALER (FLOVENT) 12 GM INH SCH ×2 (11:43→22:02)
[2020-07-03] MEDS: ENOXAPARIN 40 MG/0.4 ML (LOVENOX) SYR SC SCH ×2 (11:56→22:17)
[2020-07-03 12:09] LABS: BILIRUBIN,URINE NEGATIVE (NEGATIVE); CLARITY,URINE CLEAR; COLOR,URINE YELLOW; GLUCOSE, URINE (UA) 1+ (NEGATIVE); KETONES,URINE NEGATIVE (NEGATIVE); LEUKOCYTE ESTERASE ,URINE NEGATIVE (NEGATIVE); NITRITE,URINE POSITIVE (NEGATIVE); PH,URINE 5.5 (5-9); PROTEIN,URINE NEGATIVE (NEGATIVE)
[2020-07-03] MEDS: DOPamine DRIP 250 ML IV SCH (12:17)
[2020-07-03 12:21] LABS: BACTERIA,URINE MODERATE /HPF; SQUAMOUS EPITHELIAL CELL,UR RARE /HPF; WBC,URINE 0-2 /HPF
[2020-07-03] MEDS: REMDESIVIR INJ (NON-FORMULARY) 100 MG in NS (IVPB) 230 ML IV SCH (16:37)
[2020-07-03] MEDS: DOBUTamine DRIP 250 ML IV SCH (19:51)
[2020-07-03] MEDS: morphine INJ 4 MG/ML 1 ML (VIAL/SYRINGE) IVP PRN (22:23)
[2020-07-04] VITALS (24 sets, daily range): BP systolic 92–131; BP diastolic 56–86
[2020-07-04] MEDS: DOBUTamine DRIP 250 ML IV SCH (01:14)
[2020-07-04] MEDS: RT-ALBUTEROL INHALER HFA (VENTOLIN HFA) 18 GM IH SCH ×4 (02:25→20:21)
[2020-07-04 03:25] LABS: BASOPHILS % (AUTO) 0 % (0-10); EOSINOPHILS % (AUTO) 0 % (0-10); HEMATOCRIT 43 % (35-52); HEMOGLOBIN 14.5 g/dL (11.5-16.0); LYMPHOCYTES # (AUTO) 1.3 10^3/uL (1.0-4.0); LYMPHOCYTES % (AUTO) 16 % (12-44); MEAN CORPUSCULAR HEMOGLOBIN 31 pg (25-34); MEAN CORPUSCULAR HGB CONC 34 g/dL (32-36); MEAN CORPUSCULAR VOLUME 90 fL (80-99); MEAN PLATELET VOLUME 10.4 fL (9.0-12.2); MONOCYTES # (AUTO) 0.6 10^3/uL (0.0-1.0); MONOCYTES % (AUTO) 7 % (0-12); NEUTROPHILS # (AUTO) 6.3 10^3/uL (1.8-7.8); NEUTROPHILS % (AUTO) 75 % (42-75); PLATELET COUNT 432 10^3/uL (130-400); WHITE BLOOD COUNT 8.3 10^3/uL (4.3-11.0)
[2020-07-04 03:40] LABS: CHLORIDE 102 MMOL/L (98-107); POTASSIUM 4.2 MMOL/L (3.6-5.0); SODIUM 135 MMOL/L (135-145)
[2020-07-04 03:41] LABS: CALCIUM 8.3 MG/DL (8.5-10.1)
[2020-07-04 03:42] LABS: GLUCOSE 344 MG/DL (70-105)
[2020-07-04 03:44] LABS: CARBON DIOXIDE 22 MMOL/L (21-32)
[2020-07-04 03:46] LABS: CREATININE SERUM 0.99 MG/DL (0.60-1.30); GFR ESTIMATED > 60; PHOSPHORUS 2.7 MG/DL (2.3-4.7)
[2020-07-04 03:47] LABS: BUN/CREATININE RATIO 20
[2020-07-04 03:48] LABS: MAGNESIUM 2.4 MG/DL (1.6-2.4)
--- NOTE | 2020-07-04 05:28 | Pulmonary Progress Note ---
Subjective Time Seen by a Provider: 05:26 Subjective/Events-last exam Pt developed acute chest pain this AM. She was given nitro x 1 which resolved CP. ASA was also given. EKG was also done and shows NSR. trop x 3 pending. Sepsis Event Evaluation Height, Weight, BMI Height: 5'6.00" Weight: 270lbs. 0.0oz. 122.644237zy; 43.00 BMI Method:Stated Exam Exam Vital Signs Date Time Temp Pulse Resp B/P (MAP) Pulse Ox O2 Delivery O2 Flow Rate FiO2 07/04/20 04:27 35 07/04/20 04:23 37 07/04/20 04:18 37 121/71 07/04/20 04:00 36 21 128/80 (96) 99 Vapotherm 25.00 45.00 07/04/20 03:00 42 20 101/59 (73) 93 Vapotherm 25.00 45.00 07/04/20 02:30 Vapotherm 25.00 45.00 07/04/20 02:25 100 Vapotherm 25.00 50 07/04/20 02:00 47 28 126/64 (84) 98 Vapotherm 25.00 50.00 07/04/20 01:14 40 07/04/20 01:00 49 07/04/20 01:00 49 24 111/65 (80) 97 Vapotherm 25.00 50.00 07/04/20 00:00 45 29 131/71 (91) 98 Vapotherm 25.00 50.00 07/03/20 23:00 44 25 133/75 (94) 98 Vapotherm 25.00 50.00 07/03/20 22:49 36.4 07/03/20 22:03 94 Vapotherm 25.00 50 07/03/20 22:02 94 Vapotherm 25.00 50 07/03/20 22:00 45 20 123/72 (89) 93 Vapotherm 25.00 50.00 07/03/20 21:00 52 20 117/65 (82) 92 Vapotherm 25.00 50.00 07/03/20 20:16 96 Vapotherm 25.00 50 07/03/20 20:00 74 17 138/87 (104) 95 Vapotherm 25.00 50.00 07/03/20 19:55 36.0 Vapotherm 25.00 50.00 07/03/20 19:00 42 16 102/53 (69) 98 Vapotherm 25.00 50.00 07/03/20 19:00 52 07/03/20 18:53 97 Vapotherm 25.00 50 07/03/20 18:00 41 19 87/53 (64) 96 Vapotherm 25.00 50.00 07/03/20 17:00 90 34 111/66 (81) 98 Vapotherm 25.00 50.00 07/03/20 16:00 36.6 07/03/20 16:00 52 21 115/67 (83) 100 Vapotherm 25.00 50.00 07/03/20 15:01 100 Vapotherm 25.00 50 07/03/20 15:00 40 21 114/63 (80) 100 Vapotherm 25.00 50.00 07/03/20 14:00 48 25 101/71 (81) 98 Vapotherm 25.00 50.00 07/03/20 13:00 58 27 106/64 (78) 100 Vapotherm 25.00 50.00 07/03/20 12:41 67 07/03/20 12:00 75 14 109/66 (80) 99 Vapotherm 25.00 50.00 07/03/20 11:00 84 23 102/58 (73) 100 Vapotherm 25.00 50.00 07/03/20 10:00 96 23 111/77 (88) 95 Vapotherm 25.00 50.00 07/03/20 09:00 52 20 131/80 (97) 89 Vapotherm 25.00 50.00 07/03/20 09:00 96 Vapotherm 30.00 80 07/03/20 08:00 45 27 128/80 (96) 96 Vapotherm 25.00 50.00 07/03/20 07:28 36.8 07/03/20 07:00 43 27 143/86 (105) 92 Vapotherm 25.00 50.00 07/03/20 07:00 48 07/03/20 06:00 43 28 135/75 (95) 97 Vapotherm 25.00 50.00 I & O 07/04/20 07:00 Intake Total 1650 ml Output Total 3250 ml Balance -1600 ml Height & Weight Height: 5'6.00" Weight: 270lbs. 0.0oz. 122.313597zu; 43.00 BMI Method:Stated General Appearance: No Apparent Distress, WD/WN HEENT: PERRL/EOMI, TMs Normal, Normal ENT Inspection Neck: Full Range of Motion, Normal Inspection, Non Tender Respiratory: Chest Non Tender, No Respiratory Distress, Crackles, Decreased Breath Sounds Cardiovascular: Regular Rate, Rhythm, No Edema Capillary Refill: Less Than 3 Seconds Gastrointestinal: normal bowel sounds, non tender, soft Extremity: Normal Capillary Refill, Normal Inspection Neurologic/Psychiatric: Alert, Oriented x3 Skin: Normal Color, Warm/Dry Lymphatic: No Adenopathy Results Lab Laboratory Tests 07/03/20 03:48 07/04/20 02:58 Assessment/Plan Assessment/Plan improving hypoxia - s/p CVP x2 - Decadron 6mg IV -Now requiring 50% vapotherm Acute CP -Check EKG, troponins give nitro and ASA -Check CXR COVID + Pneumonia -Remdesivir -Symptom onset was 10 days ago -Daily CMPs -S/p 2 units of Convalescent plasma -Pt understand these are EUA medications and consents to use. 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 acetazolamide- Was given yesterday however today bicarb dropped from 26 to 22. -will hold today Bradycardia -- BP is normal -Cardiology following -Pt is currently on Dopamine uncontrolled NIDDM -Start Levemir Elevated LFTs -Monitor LUBNA DOMINGUEZ DO Jul 04, 2020 05:28
[2020-07-04] MEDS ORDERED: NITROGLYCERIN 0.4 MG SL TABS BTL 25'S SL ONE ×2 (05:30)
[2020-07-04] MEDS: ASPIRIN 81 MG CHEW (CHILDREN'S ASA) PO SCH (05:32)
[2020-07-04 05:38] LABS: ALBUMIN 3.5 GM/DL (3.2-4.5)
[2020-07-04 05:41] LABS: TOTAL PROTEIN 6.5 GM/DL (6.4-8.2)
[2020-07-04 05:43] LABS: BILIRUBIN,TOTAL 0.5 MG/DL (0.1-1.0)
[2020-07-04 05:44] LABS: ALKALINE PHOSPHATASE 51 U/L (40-136)
[2020-07-04 05:47] LABS: ALANINE AMINOTRANSFERASE 125 U/L (0-55)
[2020-07-04] MEDS: inSUlin ASPART (NovoLOG) 1 UNIT/0.01 ML (CHARGE PER UNIT) SC SCH ×3 (05:47→16:54)
[2020-07-04] MEDS: LEVOTHYROXINE 100 MCG (LEVOTHROID) TAB PO SCH (05:48)
[2020-07-04] MEDS: FLUTICASONE 110 MCG INHALER (FLOVENT) 12 GM INH SCH ×2 (07:09→20:22)
--- NOTE | 2020-07-04 09:12 | Diagnostic Imaging Report ---
INDICATION: Dyspnea AP view of the chest is obtained with comparison made to study of 06/30/2020. There is suboptimal inspiration. There is mild bilateral atelectasis and/or pneumonitis however aeration of the lungs is improved compared to previous study. There is no evidence of pneumothorax, consolidation or significant pleural fluid. IMPRESSION: Improved aeration of the lungs with mild residual edema and/or pneumonitis located primarily in the perihilar regions. Dictated by: Dictated on workstation # [id number]
[2020-07-04] MEDS: CLOPIDOGREL 75 MG (PLAVIX) TABLET PO SCH (09:50)
[2020-07-04] MEDS: PANTOPRAZOLE 40 MG (PROTONIX) VIAL IV SCH (09:50)
[2020-07-04] MEDS: cefTRIAXone FOR IV USE 1,000 MG in WATER (STERILE) FOR INJECTION 10 ML IV SCH (09:51)
[2020-07-04] MEDS: ENOXAPARIN 40 MG/0.4 ML (LOVENOX) SYR SC SCH ×2 (09:55→22:00)
--- NOTE | 2020-07-04 15:07 | Progress Note - Cardiology ---
Cardiology SOAP Progress Note Subjective: She does not report any new symptoms. Has malaise and shortness of breath. No cp or palp or syncope Objective: I&O/Vital Signs 07/04/20 07/04/20 07/04/20 07/04/20 04:00 04:18 04:23 04:27 Pulse 36 37 37 35 Resp 21 B/P (MAP) 128/80 (96) 121/71 Pulse Ox 99 O2 Delivery Vapotherm O2 Flow Rate 25.00 45.00 07/04/20 07/04/20 07/04/20 07/04/20 05:00 06:00 07:00 07:00 Pulse 39 64 50 43 Resp 14 20 24 B/P (MAP) 131/75 (93) 114/74 (87) 107/72 (84) Pulse Ox 99 99 100 O2 Delivery Vapotherm Vapotherm Vapotherm O2 Flow Rate 25.00 25.00 25.00 45.00 45.00 45.00 07/04/20 07/04/20 07/04/20 07/04/20 07:09 08:00 09:00 09:00 Pulse 58 45 Resp 23 22 B/P (MAP) 98/61 (73) 101/65 (77) Pulse Ox 95 95 96 97 O2 Delivery Vapotherm Vapotherm Vapotherm Vapotherm O2 Flow Rate 20.00 25.00 25.00 25.00 45.00 45.00 FiO2 40 50 07/04/20 07/04/20 07/04/20 07/04/20 10:00 11:00 12:00 12:53 Pulse 50 47 46 45 Resp 17 11 32 B/P (MAP) 97/59 (72) 105/71 (82) 106/69 (81) Pulse Ox 99 97 95 O2 Delivery Vapotherm Vapotherm Vapotherm O2 Flow Rate 25.00 25.00 25.00 45.00 45.00 45.00 07/04/20 07/04/20 07/04/20 13:00 14:00 14:22 Pulse 49 43 Resp 24 29 B/P (MAP) 120/66 (84) 123/81 (95) Pulse Ox 94 95 95 O2 Delivery Vapotherm Vapotherm Vapotherm O2 Flow Rate 15.00 15.00 10.00 21.00 21.00 FiO2 21 07/04/20 00:00 Intake Total 950 ml Output Total 1100 ml Balance -150 ml Weight (Pounds): 270 Weight (Ounces): 0.0 Weight (Calculated Kilograms): 122.740352 Constitutional: AAO x 3, well-developed, well-nourished Respiratory: No accessory muscle use; other (good bilat air entry) Cardiovascular: regular rate-rhythm, S1 and S2 Gastrointestional: No tender; audible bowel sounds Extremities: No clubbing, No cyanosis, No significant edema Neurologic/Psychiatric: oriented x 3, other (moves all limbs equally) Skin: No rash on exposed areas, No ulcerations on exposed areas Results/Procedures: Labs Laboratory Tests 07/03/20 18:06: Glucometer 413*H 07/03/20 22:48: Glucometer 379H 07/04/20 02:58: White Blood Count 8.3, Red Blood Count 4.73, Hemoglobin 14.5, Hematocrit 43, Mean Corpuscular Volume 90, Mean Corpuscular Hemoglobin 31, Mean Corpuscular Hemoglobin Concent 34, Red Cell Distribution Width 11.0, Platelet Count 432H, Mean Platelet Volume 10.4, Immature Granulocyte % (Auto) 2, Neutrophils (%) (Auto) 75, Lymphocytes (%) (Auto) 16, Monocytes (%) (Auto) 7, Eosinophils (%) (Auto) 0, Basophils (%) (Auto) 0, Neutrophils # (Auto) 6.3, Lymphocytes # (Auto) 1.3, Monocytes # (Auto) 0.6, Eosinophils # (Auto) 0.0, Basophils # (Auto) 0.0, Immature Granulocyte # (Auto) 0.2H, Sodium Level 135, Potassium Level 4.2, Chloride Level 102, Carbon Dioxide Level 22, Anion Gap 11, Blood Urea Nitrogen 20H, Creatinine 0.99, Estimat Glomerular Filtration Rate > 60, BUN/Creatinine Ratio 20, Glucose Level 344H, Calcium Level 8.3L, Corrected Calcium 8.7, Phosphorus Level 2.7, Magnesium Level 2.4, Total Bilirubin 0.5, Aspartate Amino Transf (AST/SGOT) 52H, Alanine Aminotransferase (ALT/SGPT) 125H, Alkaline Phosphatase 51, Troponin I < 0.028, Total Protein 6.5, Albumin 3.5 07/04/20 12:08: Troponin I < 0.028 07/04/20 12:51: Glucometer 236H Microbiology 07/03/20 Urine Culture - Preliminary, Resulted Escherichia coli 06/30/20 MRSA Screen - Final, Complete MRSA not isolated 06/30/20 Blood Culture - Preliminary, Resulted No growth Laboratory Tests 07/03/20 03:48 07/04/20 02:58 A/P: Assessment: COVID-19 pneumonia and ac resp failure treated with vapotherm and proning and high-dose steroid Sinus vane likely due to above, especially high-dose steroid Mild troponin elevation, likely type 2 [place] due to transient hypoxemia (had presented with oxygen sat in the 60s) DM II Plan: Consider reducing steroids when clinically feasible. This will likely improve heart rate Avoid rate-lowering meds and vagal maneuvers as far as possible Monitor labs CHICA ROMAN MD FACP [facility] CCDS Jul 04, 2020 15:07
[2020-07-04] MEDS: REMDESIVIR INJ (NON-FORMULARY) 100 MG in NS (IVPB) 230 ML IV SCH (16:11)
[2020-07-04] MEDS: DOPamine DRIP 250 ML IV SCH (16:54)
[2020-07-04] MEDS ORDERED: inSUlin ASPART (NovoLOG) 1 UNIT/0.01 ML (CHARGE PER UNIT) SC SCH (21:00)
[2020-07-05] VITALS (12 sets, daily range): BP systolic 93–152; BP diastolic 45–76
[2020-07-05] MEDS: inSUlin ASPART (NovoLOG) 1 UNIT/0.01 ML (CHARGE PER UNIT) SC SCH ×5 (00:29→21:03)
[2020-07-05 03:51] LABS: BASOPHILS % (AUTO) 0 % (0-10); EOSINOPHILS % (AUTO) 1 % (0-10); HEMATOCRIT 42 % (35-52); HEMOGLOBIN 14.4 g/dL (11.5-16.0); LYMPHOCYTES % (AUTO) 24 % (12-44); MEAN CORPUSCULAR HEMOGLOBIN 31 pg (25-34); MEAN CORPUSCULAR HGB CONC 34 g/dL (32-36); MEAN CORPUSCULAR VOLUME 89 fL (80-99); MEAN PLATELET VOLUME 10.4 fL (9.0-12.2); MONOCYTES # (AUTO) 0.6 10^3/uL (0.0-1.0); MONOCYTES % (AUTO) 7 % (0-12); NEUTROPHILS # (AUTO) 5.5 10^3/uL (1.8-7.8); NEUTROPHILS % (AUTO) 66 % (42-75); PLATELET COUNT 413 10^3/uL (130-400); WHITE BLOOD COUNT 8.3 10^3/uL (4.3-11.0)
[2020-07-05 04:25] LABS: ALANINE AMINOTRANSFERASE 89 U/L (0-55); ALBUMIN 3.3 GM/DL (3.2-4.5); ALKALINE PHOSPHATASE 46 U/L (40-136); BILIRUBIN,TOTAL 0.5 MG/DL (0.1-1.0); BUN/CREATININE RATIO 21; CALCIUM 8.2 MG/DL (8.5-10.1); CARBON DIOXIDE 20 MMOL/L (21-32); CHLORIDE 104 MMOL/L (98-107); CREATININE SERUM 0.96 MG/DL (0.60-1.30); GFR ESTIMATED > 60; GLUCOSE 209 MG/DL (70-105); MAGNESIUM 2.5 MG/DL (1.6-2.4); PHOSPHORUS 2.7 MG/DL (2.3-4.7); POTASSIUM 3.8 MMOL/L (3.6-5.0); SODIUM 137 MMOL/L (135-145); TOTAL PROTEIN 6.4 GM/DL (6.4-8.2)
[2020-07-05] MEDS: RT-ALBUTEROL INHALER HFA (VENTOLIN HFA) 18 GM IH SCH ×4 (04:46→21:48)
--- NOTE | 2020-07-05 05:48 | Pulmonary Progress Note ---
Subjective Time Seen by a Provider: 05:47 Subjective/Events-last exam Pt appears to be improving. Sepsis Event Evaluation Height, Weight, BMI Height: 5'6.00" Weight: 270lbs. 0.0oz. 122.923458nt; 43.00 BMI Method:Stated Exam Exam Vital Signs Date Time Temp Pulse Resp B/P (MAP) Pulse Ox O2 Delivery O2 Flow Rate FiO2 07/05/20 03:00 39 28 109/71 (84) 94 Vapotherm 15.00 21.00 07/05/20 02:00 49 24 107/73 (84) 96 Vapotherm 15.00 21.00 07/05/20 01:00 50 24 111/71 (84) 94 Vapotherm 15.00 21.00 07/05/20 01:00 40 07/05/20 00:00 41 29 110/66 (81) 94 Vapotherm 15.00 21.00 07/04/20 23:00 44 28 124/80 (95) 95 Vapotherm 15.00 21.00 07/04/20 22:00 61 17 127/86 (100) 97 Vapotherm 15.00 21.00 07/04/20 21:00 70 28 98/86 (90) 97 Vapotherm 15.00 21.00 07/04/20 21:00 95 Room Air 07/04/20 20:31 Room Air 07/04/20 20:22 96 Room Air 07/04/20 20:00 36.2 07/04/20 20:00 73 26 103/64 (77) 92 Vapotherm 15.00 21.00 07/04/20 19:00 65 30 96/61 (73) 97 Vapotherm 15.00 21.00 07/04/20 19:00 80 07/04/20 18:00 72 30 101/73 (82) 92 Vapotherm 15.00 21.00 07/04/20 17:00 73 97/71 (80) 90 Vapotherm 15.00 21.00 07/04/20 16:00 57 28 92/56 (68) 95 Vapotherm 15.00 21.00 07/04/20 15:00 40 27 107/59 (75) 91 Vapotherm 15.00 21.00 07/04/20 14:22 95 Vapotherm 10.00 21 07/04/20 14:00 43 29 123/81 (95) 95 Vapotherm 15.00 21.00 07/04/20 13:00 49 24 120/66 (84) 94 Vapotherm 15.00 21.00 07/04/20 12:53 45 07/04/20 12:00 46 32 106/69 (81) 95 Vapotherm 25.00 45.00 07/04/20 11:00 47 11 105/71 (82) 97 Vapotherm 25.00 45.00 07/04/20 10:00 50 17 97/59 (72) 99 Vapotherm 25.00 45.00 07/04/20 09:00 45 22 101/65 (77) 97 Vapotherm 25.00 45.00 07/04/20 09:00 96 Vapotherm 25.00 50 07/04/20 08:00 58 23 98/61 (73) 95 Vapotherm 25.00 45.00 07/04/20 07:09 95 Vapotherm 20.00 40 07/04/20 07:00 43 24 107/72 (84) 100 Vapotherm 25.00 45.00 07/04/20 07:00 50 07/04/20 06:00 64 20 114/74 (87) 99 Vapotherm 25.00 45.00 I & O 07/05/20 07:00 Intake Total 896 ml Output Total 825 ml Balance 71 ml Height & Weight Height: 5'6.00" Weight: 270lbs. 0.0oz. 122.162751fy; 43.00 BMI Method:Stated General Appearance: No Apparent Distress, WD/WN HEENT: PERRL/EOMI, TMs Normal, Normal ENT Inspection Neck: Full Range of Motion, Normal Inspection, Non Tender Respiratory: Chest Non Tender, No Respiratory Distress, Crackles, Decreased Breath Sounds Cardiovascular: Regular Rate, Rhythm, No Edema Capillary Refill: Less Than 3 Seconds Gastrointestinal: normal bowel sounds, non tender, soft Extremity: Normal Capillary Refill, Normal Inspection Neurologic/Psychiatric: Alert, Oriented x3 Skin: Normal Color, Warm/Dry Lymphatic: No Adenopathy Results Lab Laboratory Tests 07/04/20 02:58 07/05/20 03:11 Assessment/Plan Assessment/Plan improving hypoxia - s/p CVP x2 - Decadron 6mg IV -Now on RA. COVID + Pneumonia -Remdesivir -Symptom onset was 10 days ago -Daily CMPs -S/p 2 units of Convalescent plasma -Pt understand these are EUA medications and consents to use. 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 acetazolamide- Was given yesterday however today bicarb dropped from 26 to 22. -will hold today Bradycardia -- BP is normal -Cardiology following -Pt is currently on Dopamine uncontrolled NIDDM -Start Levemir Elevated LFTs -Monitor LUBNA DOMINGUEZ DO Jul 05, 2020 05:48
[2020-07-05] MEDS: LEVOTHYROXINE 100 MCG (LEVOTHROID) TAB PO SCH (06:07)
[2020-07-05] MEDS: FLUTICASONE 110 MCG INHALER (FLOVENT) 12 GM INH SCH ×2 (07:22→21:48)
[2020-07-05] MEDS: DOCUSATE SODIUM 100 MG (COLACE) CAP PO SCH ×2 (08:45→21:03)
[2020-07-05] MEDS: PANTOPRAZOLE 40 MG (PROTONIX) VIAL IV SCH (08:45)
[2020-07-05] MEDS: cefTRIAXone FOR IV USE 1,000 MG in WATER (STERILE) FOR INJECTION 10 ML IV SCH (08:45)
[2020-07-05] MEDS: ASPIRIN 81 MG CHEW (CHILDREN'S ASA) PO SCH (08:46)
[2020-07-05] MEDS: CLOPIDOGREL 75 MG (PLAVIX) TABLET PO SCH (08:46)
--- NOTE | 2020-07-05 09:58 | NUR ---
PT SAO2 88% ON ROOM AIR. NEW SAT PROBE PLACED ON PT AT THIS TIME. STILL SHOWING 88%. O2 APPLIED AT 2L PER NC. 1002 NOW SHOWING 91% ON O2 AT 2L PER NC. [employer] AWARE
[2020-07-05] MEDS: ENOXAPARIN 40 MG/0.4 ML (LOVENOX) SYR SC SCH ×2 (11:00→23:43)
--- NOTE | 2020-07-05 13:25 | NUR ---
REPORT GIVEN TO BETH BATES. PATIENT TAKEN DOWN TO ROOM 429 VIA WHEELCHAIR. COVID POSITIVE ISOLATION PROTOCOLS FOLLOWED. NO ACUTE CHANGES. NO NEW COMPLAINTS. VITALS HAVE REMAINED STABLE.
[2020-07-05] MEDS: ACETAMINOPHEN 325 MG TABLET PO PRN (22:11)
[2020-07-06] MEDS: RT-ALBUTEROL INHALER HFA (VENTOLIN HFA) 18 GM IH SCH ×3 (02:18→15:13)
[2020-07-06 04:22] VITALS: BP 90/51
[2020-07-06] MEDS: LEVOTHYROXINE 100 MCG (LEVOTHROID) TAB PO SCH (05:37)
[2020-07-06 06:07] LABS: BASOPHILS % (AUTO) 0 % (0-10); EOSINOPHILS # (AUTO) 0.2 10^3/uL (0.0-0.3); EOSINOPHILS % (AUTO) 3 % (0-10); HEMATOCRIT 40 % (35-52); HEMOGLOBIN 14.2 g/dL (11.5-16.0); LYMPHOCYTES # (AUTO) 2.5 10^3/uL (1.0-4.0); LYMPHOCYTES % (AUTO) 33 % (12-44); MEAN CORPUSCULAR HEMOGLOBIN 31 pg (25-34); MEAN CORPUSCULAR HGB CONC 36 g/dL (32-36); MEAN CORPUSCULAR VOLUME 88 fL (80-99); MEAN PLATELET VOLUME 10.4 fL (9.0-12.2); MONOCYTES # (AUTO) 0.5 10^3/uL (0.0-1.0); MONOCYTES % (AUTO) 6 % (0-12); NEUTROPHILS % (AUTO) 53 % (42-75); PLATELET COUNT 369 10^3/uL (130-400); WHITE BLOOD COUNT 7.5 10^3/uL (4.3-11.0)
[2020-07-06 06:32] LABS: ALBUMIN 3.1 GM/DL (3.2-4.5); CHLORIDE 105 MMOL/L (98-107); POTASSIUM 3.3 MMOL/L (3.6-5.0); SODIUM 137 MMOL/L (135-145)
[2020-07-06 06:34] LABS: CALCIUM 8.1 MG/DL (8.5-10.1)
[2020-07-06 06:35] LABS: GLUCOSE 282 MG/DL (70-105); TOTAL PROTEIN 5.9 GM/DL (6.4-8.2)
[2020-07-06 06:36] LABS: CARBON DIOXIDE 19 MMOL/L (21-32)
[2020-07-06 06:37] LABS: BILIRUBIN,TOTAL 0.4 MG/DL (0.1-1.0)
[2020-07-06 06:38] LABS: ALKALINE PHOSPHATASE 58 U/L (40-136); PHOSPHORUS 4.1 MG/DL (2.3-4.7)
[2020-07-06 06:39] LABS: BUN/CREATININE RATIO 21; GFR ESTIMATED > 60
[2020-07-06 06:41] LABS: ALANINE AMINOTRANSFERASE 63 U/L (0-55)
[2020-07-06] MEDS: inSUlin ASPART (NovoLOG) 1 UNIT/0.01 ML (CHARGE PER UNIT) SC SCH ×2 (06:49→10:49)
[2020-07-06 08:00] VITALS: BP 90/53
[2020-07-06] MEDS: FLUTICASONE 110 MCG INHALER (FLOVENT) 12 GM INH SCH (08:06)
[2020-07-06] MEDS ORDERED: WATER (STERILE) FOR INJECTION 10 ML ONE (08:26)
[2020-07-06] MEDS ORDERED: cefTRIAXone 1,000 MG IV (ROCEPHIN) VIAL ONE (08:26)
[2020-07-06] MEDS: DOCUSATE SODIUM 100 MG (COLACE) CAP PO SCH (08:32)
[2020-07-06] MEDS: PANTOPRAZOLE 40 MG (PROTONIX) VIAL IV SCH (08:32)
[2020-07-06] MEDS: ASPIRIN 81 MG CHEW (CHILDREN'S ASA) PO SCH (08:32)
[2020-07-06] MEDS: CLOPIDOGREL 75 MG (PLAVIX) TABLET PO SCH (08:32)
[2020-07-06] MEDS: cefTRIAXone FOR IV USE 1,000 MG in WATER (STERILE) FOR INJECTION 10 ML IV SCH (08:33)
--- NOTE | 2020-07-06 08:47 | Progress Note - Cardiology ---
Cardiology SOAP Progress Note Subjective: Lying in bed. States her cough is improving and SOB. Continues to feel fatigued. No c/o CP, palpitations, syncope or near syncope. Objective: I&O/Vital Signs 07/06/20 07/06/20 07/06/20 07/06/20 06:40 08:00 08:00 08:05 Temp 36.0 Pulse 47 51 Resp 16 B/P (MAP) 90/53 (65) Pulse Ox 93 93 O2 Delivery Room Air Room Air Room Air O2 Flow Rate 2.00 0.00 0.00 07/06/20 07/06/20 07/06/20 07/06/20 08:07 11:40 12:34 15:06 Temp 36.0 Pulse 88 73 90 Resp 20 B/P (MAP) 99/63 (75) Pulse Ox 93 92 87 O2 Delivery Room Air Room Air O2 Flow Rate 0.00 0.00 07/06/20 07/06/20 15:13 16:38 B/P (MAP) Pulse Ox 93 O2 Delivery Nasal Cannula O2 Flow Rate 2.00 07/06/20 00:00 Intake Total 1500 ml Output Total 229 ml Balance 1271 ml Weight (Pounds): 270 Weight (Ounces): 0.0 Weight (Calculated Kilograms): 122.247358 Constitutional: AAO x 3, well-developed, well-nourished Respiratory: No accessory muscle use; other (good bilat air entry) Cardiovascular: regular rate-rhythm, S1 and S2 Gastrointestional: No tender; audible bowel sounds Extremities: No clubbing, No cyanosis, No significant edema Neurologic/Psychiatric: oriented x 3, other (moves all limbs equally) Skin: No rash on exposed areas, No ulcerations on exposed areas Results/Procedures: Labs Laboratory Tests 07/05/20 20:03: Glucometer 251H 07/06/20 05:30: White Blood Count 7.5, Red Blood Count 4.54, Hemoglobin 14.2, Hematocrit 40, Mean Corpuscular Volume 88, Mean Corpuscular Hemoglobin 31, Mean Corpuscular Hemoglobin Concent 36, Red Cell Distribution Width 11.2, Platelet Count 369, Mean Platelet Volume 10.4, Immature Granulocyte % (Auto) 4, Neutrophils (%) (Auto) 53, Lymphocytes (%) (Auto) 33, Monocytes (%) (Auto) 6, Eosinophils (%) (Auto) 3, Basophils (%) (Auto) 0, Neutrophils # (Auto) 4.0, Lymphocytes # (Auto) 2.5, Monocytes # (Auto) 0.5, Eosinophils # (Auto) 0.2, Basophils # (Auto) 0.0, Immature Granulocyte # (Auto) 0.3H, Sodium Level 137, Potassium Level 3.3L, Chloride Level 105, Carbon Dioxide Level 19L, Anion Gap 13, Blood Urea Nitrogen 19H, Creatinine 0.90, Estimat Glomerular Filtration Rate > 60, BUN/Creatinine Ratio 21, Glucose Level 282H, Calcium Level 8.1L, Corrected Calcium 8.8, Phosphorus Level 4.1, Magnesium Level 2.0, Total Bilirubin 0.4, Aspartate Amino Transf (AST/SGOT) 21, Alanine Aminotransferase (ALT/SGPT) 63H, Alkaline Phosphatase 58, Total Protein 5.9L, Albumin 3.1L 07/06/20 10:45: Glucometer 337H 07/06/20 15:51: Glucometer 213H Microbiology 07/03/20 Urine Culture - Final, Complete Escherichia coli 06/30/20 MRSA Screen - Final, Complete MRSA not isolated 06/30/20 Blood Culture - Final, Complete No growth Laboratory Tests 07/05/20 03:11 07/06/20 05:30 A/P: Assessment: COVID-19 pneumonia and ac resp failure, now resolved Sinus vane likely due to above, especially high-dose steroid, now resolved Mild troponin elevation, likely type 2 RI due to transient hypoxemia (had presented with oxygen sat in the 60s) DM II Plan: Monitor labs Replace electrolytes D/c Plavix Continue ASA Covid-related anticoag as determined by Dr Oneill I discussed her case with Dr Oneill on the phone today Physician Assessment Physician Assessment Above is a report of mutual evaluation of the patient by Jose Fisher APRN, and me I have updated the note above in italics [employer] Jul 06, 2020 08:47 CHICA ROMAN MD [facility] Jul 06, 2020 16:47
[2020-07-06] MEDS ORDERED: KCL 10 MEQ TAB (MICRO K) PO NR (09:00)
[2020-07-06] MEDS: ENOXAPARIN 40 MG/0.4 ML (LOVENOX) SYR SC SCH (10:49)
[2020-07-06 11:40] VITALS: BP 99/63
--- NOTE | 2020-07-06 13:17 | Discharge Summary ---
Diagnosis/Chief Complaint Date of Admission Jun 30, 2020 at 13:19 Date of Discharge Discharge Date: Jul 06, 2020 Primary Care Ryne Whitfield MD Discharge Summary Procedures/Consulations Dr Mohsen Gonzalez Discharge Physical Exam Allergies: Coded Allergies: No Known Drug Allergies (Unverified , 12/29/12) Vitals & I&Os Vital Signs Date Time Temp Pulse Resp B/P (MAP) Pulse Ox O2 Delivery O2 Flow Rate FiO2 07/06/20 12:34 73 07/06/20 11:40 36.0 20 99/63 (75) 92 Room Air 0.00 07/04/20 14:22 21 General Appearance: No Apparent Distress, Obese Neurologic/Psychiatric: Alert, Oriented x3 Hospital Course Pt was admitted to the ICU due acute hypoxic respiratory failure. She required Vapotherm and was treated with Remdesivir, convalescent plasma x2, and decadron. She responded well and was able to be weaned off of oxygen. She had an otherwise uneventful hospital stay. She was discharged home in stable condition to follow up with her primary care doctor. Labs (last 24 hrs) Laboratory Tests 07/05/20 16:05: Glucometer 248H 07/05/20 20:03: Glucometer 251H 07/06/20 05:30: White Blood Count 7.5, Red Blood Count 4.54, Hemoglobin 14.2, Hematocrit 40, Mean Corpuscular Volume 88, Mean Corpuscular Hemoglobin 31, Mean Corpuscular Hemoglobin Concent 36, Red Cell Distribution Width 11.2, Platelet Count 369, Mean Platelet Volume 10.4, Immature Granulocyte % (Auto) 4, Neutrophils (%) (Auto) 53, Lymphocytes (%) (Auto) 33, Monocytes (%) (Auto) 6, Eosinophils (%) (Auto) 3, Basophils (%) (Auto) 0, Neutrophils # (Auto) 4.0, Lymphocytes # (Auto) 2.5, Monocytes # (Auto) 0.5, Eosinophils # (Auto) 0.2, Basophils # (Auto) 0.0, Immature Granulocyte # (Auto) 0.3H, Sodium Level 137, Potassium Level 3.3L, Chl oride Level 105, Carbon Dioxide Level 19L, Anion Gap 13, Blood Urea Nitrogen 19H , Creatinine 0.90, Estimat Glomerular Filtration Rate > 60, BUN/Creatinine Ratio 21, Glucose Level 282H, Calcium Level 8.1L, Corrected Calcium 8.8, Phosphorus Level 4.1, Magnesium Level 2.0, Total Bilirubin 0.4, Aspartate Amino Transf (AST/SGOT) 21, Alanine Aminotransferase (ALT/SGPT) 63H, Alkaline Phosphatase 58, Total Protein 5.9L, Albumin 3.1L 07/06/20 10:45: Glucometer 337H Microbiology 07/03/20 Urine Culture - Final, Complete Escherichia coli 06/30/20 MRSA Screen - Final, Complete MRSA not isolated 06/30/20 Blood Culture - Final, Complete No growth Patient resulted labs reviewed. Pending Labs Laboratory Tests 07/06/20 05:30: White Blood Count 7.5, Red Blood Count 4.54, Hemoglobin 14.2, Hematocrit 40, Mean Corpuscular Volume 88, Mean Corpuscular Hemoglobin 31, Mean Corpuscular Hemoglobin Concent 36, Red Cell Distribution Width 11.2, Platelet Count 369, Mean Platelet Volume 10.4, Immature Granulocyte % (Auto) 4, Neutrophils (%) (Auto) 53, Lymphocytes (%) (Auto) 33, Monocytes (%) (Auto) 6, Eosinophils (%) (Auto) 3, Basophils (%) (Auto) 0, Neutrophils # (Auto) 4.0, Lymphocytes # (Auto) 2.5, Monocytes # (Auto) 0.5, Eosinophils # (Auto) 0.2, Basophils # (Auto) 0.0, Immature Granulocyte # (Auto) 0.3, Sodium Level 137, Potassium Level 3.3, Chloride Level 105, Carbon Dioxide Level 19, Anion Gap 13, Blood Urea Nitrogen 19, Creatinine 0.90, Estimat Glomerular Filtration Rate > 60, BUN/Creatinine Ratio 21, Glucose Level 282, Calcium Level 8.1, Corrected Calcium 8.8, Phosphorus Level 4.1, Magnesium Level 2.0, Total Bilirubin 0.4, Aspartate Amino Transf (AST/SGOT) 21, Alanine Aminotransferase (ALT/SGPT) 63, Alkaline Phosphatase 58, Total Protein 5.9, Albumin 3.1 07/06/20 10:45: Glucometer 337 Discussion & Recommendations Discharge Planning: >30 minutes discharge planning Discharge Home Medications: Active Scripts Active Reported Mucus Relief (Guaifenesin) 400 Mg Tablet 400 Mg PO Q4H PRN Acetazolamide 250 Mg Tablet 500 Mg PO BID TAKES 2 (250MG) TABS Metformin HCl 500 Mg Tablet 500 Mg PO BID LAST FILLED 03-13-2020 #180/90 DAY SUPPLY Levothyroxine Sodium 200 Mcg Tablet 200 Mcg PO DAILY LAST FILLED 03-13-2020 #90 Instructions to patient/family Please see electronic discharge instructions given to patient. Clinical Quality Measures DVT/VTE Risk/Contraindication: Risk Factor Score Per Nursin RFS Level Per Nursing on Admit: 2=Moderate MELE MCCABE MD Jul 06, 2020 13:17
[2020-07-06] MEDS ORDERED: FLT11013 INH (14:58)
[2020-07-06] MEDS ORDERED: CEPH-507 PO (14:58)
[2020-07-06] MEDS ORDERED: ASPI-999 PO (14:58)
--- NOTE | 2020-07-06 15:02 | Discharge Inst-Simple/Standard ---
Discharge Inst-Standard Discharge Medications New, Converted or Re-Newed RX: Transmitted to Pharmacy Patient Instructions/Follow Up Plan of Care/Instructions/FU: Please take your medications as written and follow up with your primary care doctor to follow up this hospital stay. Activity as Tolerated: Yes Discharge Diet: No Restrictions Return to The Hospital For: Chest pain, shortness of breath, fever, weakness, confusion, if you feel youa re getting worse. MELE MCCABE MD Jul 06, 2020 15:02
--- NOTE | 2020-07-06 15:06 | NUR ---
spo2 dropped to 87% on room air with exertion. placed pt on o2 @ 2 lpm. spo2 stayed above 90% with exertion on o2 @ 2 lpm. Addendum: 07/06/20 at 1512 by CLYDE MARQUEZ RT Amended: Links added.
--- NOTE | 2020-07-06 15:57 | NUR ---
Pt qualifies for Home Oxygen. She chose [facility] and faxed physician order and copy of Home oxygen study.will follow
[2020-07-06 16:41] VITALS: BP 97/53
[2020-07-07] MEDS ORDERED: PANTOPRAZOLE 40 MG (PROTONIX) TAB PO SCH (09:00)
== END 2020-07-06 17:00 | disposition home or self-care (01) | DRG 177 ==
LOC: EDUNIT# 11:11 → ER 11:12 → ICU 13:19 → 4TH 07-05 13:26
PROVIDERS: ADMIT Internal Medicine; ATTEND Internal Medicine
PROC: XW033E5 Introduction of Remdesivir Anti-infective into Peripheral Vein, Percutaneous Approach, New Technology Group 5 (ICD-10-PCS; principal; 2020-06-30)
PROC: XW13325 Transfusion of Convalescent Plasma (Nonautologous) into Peripheral Vein, Percutaneous Approach, New Technology Group 5 (ICD-10-PCS; 2020-06-30)
DX: U07.1 COVID-19 (principal); J12.89 Other viral pneumonia; J96.01 Acute respiratory failure with hypoxia; I21.A1 Myocardial infarction type 2; E87.2 Acidosis; R00.1 Bradycardia, unspecified; E11.65 Type 2 diabetes mellitus with hyperglycemia; R79.89 Other specified abnormal findings of blood chemistry
CPT/HCPCS: 36415; 71045; 71275; 80048; 80053; 80076; 81000; 82728; 82805; 82962; 83605; 83735; 83880; 84100; 84145; 84484; 84703; 85007; 85025; 85027; 85379; 86141; 86900; 86901; 87040; 87077; 87081; 87088; 87186; 93005; 94640; 94660; 94760; 94761; 99291

== ENCOUNTER → 2020-08-11 | Outpatient (CLI) | payer BC ==
[~2020-08-11] MED LIST changes: +ASPI-999 PO; +CEPH-507 PO; +FLT11013 INH; +GUAI400T85 PO
--- NOTE | 2020-08-11 10:07 | Diagnostic Imaging Report ---
Clinical indication: Patient with thyroid enlargement. COMPARISONS: None. FINDINGS: THYROID NODULES: There is a 7 mm x 7 mm x 6 mm nodule with the appearance of eggshell calcification located in the mid left thyroid lobe region. THYROID GLAND: The thyroid gland is slightly small in size and heterogeneous in appearance. The right lobe measures 3.5 cm x 0.7 cm x 1.0 cm and the left lobe measures 4.4 cm x 0.8 cm x 1.2 cm in their three dimensions. ISTHMUS: The isthmus is unremarkable and measures 3 mm in thickness. IMPRESSION: 1: There is a 7 mm nodule in the left thyroid lobe which appears to have eggshell calcification. 2: Slightly small sized thyroid gland with heterogeneous parenchyma which is nonspecific. Dictated by: Dictated on workstation # [id number]
== END ==
LOC: RAD 09:00
PROVIDERS: ATTEND Family Medicine
DX: E04.1 Nontoxic single thyroid nodule (principal)
CPT/HCPCS: 76536

== ENCOUNTER → 2020-12-17 | Outpatient (CLI) | payer BC ==
[~2020-12-17] MED LIST changes: +CATHETER FLUSH 10 ML SYR IV PRN; +HOLD METFORMIN - RECEIVED CONTRAST 20 ML VIAL IV SCH; +IOHEXOL 350 MG/ML 100 ML (OMNIPAQUE 350) VIAL IV ONE; +NS 100 ML (IVPB) BAG IV ONE
--- NOTE | 2020-12-17 09:20 | Diagnostic Imaging Report ---
PROCEDURE: CT angiography of the chest with contrast. TECHNIQUE: Multiple contiguous axial images were obtained through the chest after uneventful bolus administration of intravenous contrast. 3D reconstructed CTA MIP acquisitions were also performed. Auto Exposure Controls were utilized during the CT exam to meet ALARA standards for radiation dose reduction. INDICATION: Shortness of breath. Pneumonia. FINDINGS: Good opacification of the aorta and pulmonary arteries. There is no evidence of aortic aneurysm or dissection. Pulmonary arteries are well opacified with no filling defects to indicate pulmonary emboli. There are consolidated infiltrates throughout all 5 lobes bilaterally, more severe in the left lower lobe with air bronchograms present. No evidence of pleural effusion or pericardial effusion. No mediastinal or hilar adenopathy of pathologic size. No bony abnormalities. IMPRESSION: 1. No evidence of pulmonary emboli. 2. Rather dense consolidated five lobe pneumonia most severe in the left lower lobe. Dictated by: Dictated on workstation # [id number]
--- NOTE | 2020-12-17 09:47 | Diagnostic Imaging Report ---
PROCEDURE: US Venous Lower Ext Bryce. TECHNIQUE: Multiple real-time grayscale images were obtained over the lower extremities in various projections, bilaterally. Additional duplex Doppler and color Doppler images were also obtained. INDICATION: Pain and swelling with possible pulmonary embolism. FINDINGS: The common femoral, femoral, popliteal veins and tibial veins demonstrate normal response to compression, augmentation and Valsalva. There are no abnormal lower extremity fluid collections or masses. IMPRESSION: No evidence of deep venous thrombosis in either lower extremity. Dictated by: Dictated on workstation # [id number]
== END ==
LOC: RAD 08:15
PROVIDERS: ATTEND Nurse Practitioner Family
DX: J18.1 Lobar pneumonia, unspecified organism (principal); M79.609 Pain in unspecified limb; M79.89 Other specified soft tissue disorders
CPT/HCPCS: 71275; 93970

== ENCOUNTER 2020-12-24 10:09 | Outpatient (RCR) | payer SELFPAY ==
[~2020-12-24 10:09] MED LIST changes: +GUAI400T83 PO; -GUAI400T85 PO; -SULF1TAB35 PO; +SULF1TAB38 PO
== END 2021-03-24 | disposition home or self-care (01) ==
LOC: CARD 10:09
PROVIDERS: ATTEND Family Medicine
DX: R00.2 Palpitations (principal)
CPT/HCPCS: 93270

== ENCOUNTER → 2020-12-24 | Outpatient (CLI) | payer BC ==
[~2020-12-24] MED LIST changes: -CATHETER FLUSH 10 ML SYR IV PRN; -HOLD METFORMIN - RECEIVED CONTRAST 20 ML VIAL IV SCH; -IOHEXOL 350 MG/ML 100 ML (OMNIPAQUE 350) VIAL IV ONE; -NS 100 ML (IVPB) BAG IV ONE; +RT-ALBUTEROL SULF 2.5 MG/3 ML PRE-MIX VIAL INH ONE
== END ==
LOC: RT 10:06
PROVIDERS: ATTEND Nurse Practitioner Family
DX: R06.00 Dyspnea, unspecified (principal)

== ENCOUNTER → 2020-12-24 | Outpatient (CLI) | payer BC ==
[~2020-12-24] MED LIST changes: -RT-ALBUTEROL SULF 2.5 MG/3 ML PRE-MIX VIAL INH ONE
== END ==
LOC: SLEEP 10:08
PROVIDERS: ATTEND Nurse Practitioner Family
DX: G47.30 Sleep apnea, unspecified (principal); G47.50 Parasomnia, unspecified; G47.10 Hypersomnia, unspecified

== ENCOUNTER → 2021-01-05 | Outpatient (CLI) | payer SELFPAY ==
[~2021-01-05] MED LIST changes: -GUAI400T83 PO; +GUAI400T85 PO; +SULF1TAB35 PO; -SULF1TAB38 PO
[2021-01-05 10:21] LABS: BASOPHILS # (AUTO) 0.1 10^3/uL (0.0-0.1); BASOPHILS % (AUTO) 1 % (0-10); EOSINOPHILS # (AUTO) 0.2 10^3/uL (0.0-0.3); EOSINOPHILS % (AUTO) 2 % (0-10); HEMATOCRIT 44 % (35-52); HEMOGLOBIN 14.8 g/dL (11.5-16.0); LYMPHOCYTES % (AUTO) 35 % (12-44); MEAN CORPUSCULAR HEMOGLOBIN 31 pg (25-34); MEAN CORPUSCULAR HGB CONC 34 g/dL (32-36); MEAN CORPUSCULAR VOLUME 93 fL (80-99); MEAN PLATELET VOLUME 10.4 fL (9.0-12.2); MONOCYTES # (AUTO) 0.6 10^3/uL (0.0-1.0); MONOCYTES % (AUTO) 7 % (0-12); NEUTROPHILS # (AUTO) 4.7 10^3/uL (1.8-7.8); NEUTROPHILS % (AUTO) 54 % (42-75); PLATELET COUNT 249 10^3/uL (130-400); WHITE BLOOD COUNT 8.7 10^3/uL (4.3-11.0)
[2021-01-05 10:31] LABS: ALBUMIN 4.2 GM/DL (3.2-4.5); BILIRUBIN,TOTAL 0.5 MG/DL (0.1-1.0); CALCIUM 8.8 MG/DL (8.5-10.1); CREATININE SERUM 1.23 MG/DL (0.60-1.30); POTASSIUM 3.8 MMOL/L (3.6-5.0)
--- NOTE | 2021-01-05 11:56 | Diagnostic Imaging Report ---
PA and lateral chest at 1001 INDICATION: Pneumonia The heart size is within normal limits and the heart does seem less prominent than noted on the prior exam of 07/04/2020. The lungs also seem better aerated than on the prior exam. There is no evidence for pneumonia, failure or a pleural effusion. The mediastinum is not widened. The osseous structures are intact. There is now an electronic heart monitor in the soft tissues along the anterior aspect of the left thorax near midline. IMPRESSION: 1. There is no evidence for an acute cardiopulmonary abnormality. 2. There is now electronic heart monitor in the soft tissues along the anterior aspect of the left thorax. Dictated by: Dictated on workstation # [id number]
== END ==
LOC: RAD 09:45
PROVIDERS: ATTEND Nurse Practitioner Family
DX: J18.9 Pneumonia, unspecified organism (principal)
CPT/HCPCS: 36415; 71046; 80053; 84145; 85025

== ENCOUNTER → 2021-02-26 | Outpatient (CLI) | payer SELFPAY ==
[~2021-02-26] MED LIST changes: +GUAI400T83 PO; -GUAI400T85 PO; +RT-ALBUTEROL SULF 2.5 MG/3 ML PRE-MIX VIAL INH ONE
== END ==
LOC: RT 08:00
PROVIDERS: ATTEND Nurse Practitioner Family
DX: R06.00 Dyspnea, unspecified (principal)
CPT/HCPCS: 94060; 94726; 94729